=== PATIENT | female | born 1935 | race Caucasian/White ===

== ENCOUNTER 2016-09-28 09:04 | Day surgery (SDC) | payer MEDICARE, BC, OTHER ==
[2016-09-23 14:55] VITALS: BMI 24.3
[~2016-09-28 09:04] MED LIST: LACTATED RINGERS 1,000 ML IV SCH
[2016-09-28 09:19] VITALS: TEMP 98.1
[2016-09-28] MEDS ORDERED: LIDOCAINE 1% 20 ML VIAL (10MG/ML) FOR IV START INTRADERMA ONE (09:27)
[2016-09-28] MEDS ORDERED: LIDOCAINE 1% INJ 10MG/ML (20 ML MDV) ONE (10:02)
[2016-09-28] MEDS ORDERED: PROPOFOL 10 MG/ML 20 ML VIAL IV ONE (10:02)
--- NOTE | 2016-09-28 10:27 | P.PCN ---
Date of Procedure: 09/28/16 Preoperative Diagnosis: Postoperative Diagnosis: Procedure(s) Performed: Procedure: Total colonoscopy. Preoperative diagnosis: History of diverticular disease and nonspecific abdominal symptoms. Postoperative diagnosis: Diverticulosis with no evidence of acute diverticulitis , strictures, polyps or cancer. Preparation: HalfLytely prep. Sedation: Was provided by anesthesia. Brief clinical history: The patient is an 81-year-old female who is referred for this evaluation because of nonspecific abdominal symptoms and history of diverticular disease. Her last examination was 8-10 years ago. The patient was diagnosed with non-small cell CA around 7 years ago which was treated with lobectomy and chemotherapy and has been followed at regular intervals at [facility]. Procedure: With the patient on her left lateral decubitus position and after informed consent and adequate sedation, the perianal area was inspected and it did not show any fissures or fistulas. There were no masses felt on digital rectal examination. The Olympus CFQ 160L video colonoscope was then inserted in the rectum in the usual fashion and advanced to the cecum. There were multiple diverticular orifices seen scattered both on the right and left side with no evidence of acute diverticulitis or strictures. The mucosa appeared healthy. No polyps or tumors were seen. I retroflexed endoscope in the rectum before the endoscope was withdrawn. The patient tolerated the procedure well. Plan: The patient was reassured. Discussed dietary measures. She will follow- up with you as planned. Further plans based on her course. Implants: Indications for Procedure: Operative Findings: Description of Procedure:
[2016-09-28 10:57] VITALS: BP 161/75; PULSE 64; RESP 16
== END 2016-09-28 11:08 | disposition home or self-care (01) ==
LOC: ORWHC2ENDO 09:04
DX: K57.30 Diverticulosis of large intestine without perforation or abscess without bleeding (principal); R19.8 Other specified symptoms and signs involving the digestive system and abdomen; K21.9 Gastro-esophageal reflux disease without esophagitis; I10 Essential (primary) hypertension; E78.5 Hyperlipidemia, unspecified; E07.9 Disorder of thyroid, unspecified; J45.909 Unspecified asthma, uncomplicated; Z85.9 Personal history of malignant neoplasm, unspecified; Z92.21 Personal history of antineoplastic chemotherapy; Z79.51 Long term (current) use of inhaled steroids; Z79.899 Other long term (current) drug therapy; Z88.2 Allergy status to sulfonamides
CPT/HCPCS: 45378; J2001; J2704

== ENCOUNTER → 2016-12-02 | Outpatient (CLI) | payer MEDICARE, BC, OTHER ==
--- NOTE | 2016-12-02 17:53 | BD ---
EXAMINATION TYPE: MG DEXA axial skeleton. DATE OF EXAM: 12/02/2016 COMPARISON: Previous study dated 03/27/2014. CLINICAL HISTORY: Postmenopausal female Height: 5 FT 1/4 IN Weight: 134 FRAX RISK QUESTIONS: Alcohol (3 or more units per day): NO Family History (Parent hip fracture): YES Glucocorticoids (More than 3mos): YES (Ex: prednisone, prednisolone, methylprednisolone, dexamethasone, and hydrocortisone). History of Fracture in Adulthood: NO Secondary Osteoporosis: 1. Type 1 Diabetes: NO 2. Hyperthyroidism: NO 3. Menopause before 45: YES 4. Malnutrition: NO 5. Chronic liver disease: NO Rheumatoid Arthritis: NO Current Tobacco Use: NO RISK FACTORS HISTORY OF: Family History of Osteoporosis: YES Active: YES Postmenopausal woman: TOTAL HYST AGE 39 Lost more than 2 inches in height since high school: YES MEDICATIONS: Prednisone or other steroids: YES How Lon YRS Thyroid Medications: YES Which medication: LEVOTHYROXINE How Long: SINCE AGE 39 Additional Medications: LEVOTHYROXINE,STEROIDS FOR ASTHMA,ATORVA STATIN,ATENLOL, SINGULAIR, ADVAIR HF A, MECLIZINE, FLUTICASONE,NEBULIZER ,VIT D3, OMEPRAZOLE, PROVENTIL Additional History: EXAM MEASUREMENTS: Bone mineral densitometry was performed using the [employer] System. Bone mineral density as measured about the Lumbar spine is: ----- L1-L4(G/cm2): 0.957 T Score Values are as follows: ----- L2: -1.3 ----- L3: -2.8 ----- L4: -2.1 ----- L1-L4: -1.9 Bone mineral density has: Decreased -1.7% since study of: 2013 Bone mineral density about the R hip (g/cm2): 0.612 Bone mineral density about the L hip (g/cm2): 0.626 T Score values are as follows: -----R Neck: -3.1 -----L Neck: -3.0 -----R Total: -2.8 -----L Total: -2.8 Bone mineral density has: Increased 4.5% since study of: 2013 IMPRESSION: Osteoporosis (T Score less than -2.5) as noted by T Score values at the There is increased fracture risk and therapy is usually indicated based on age. Re-Screen 1-2 years. RECOMMENDATION: LATERAL RADIOGRAPHS OF THE THORACIC AND LUMBAR SPINES TO ASSESS FOR FRAGILITY FRACTUR ES THE PATIENT HAS LOST 1 INCH IN HEIGHT SINCE THE PRIOR STUDY. NOTE: T-SCORE=SD OF THE YOUNG ADULT MEAN.
--- NOTE | 2016-12-03 13:09 | MM ---
Reason for exam: screening (asymptomatic). Last mammogram was performed 3 years ago. History: Patient is postmenopausal and has history of other cancer at age 75. Family history of breast cancer in maternal aunt at age 45. Benign excisional biopsy of the left breast, 1992. 8 cyst aspirations of the left breast. 4 cyst aspirations of the right breast. Took estrogen for 2 years beginning at age 68. Taking other hormone for 34 years beginning at age 39. Physical Findings: A clinical breast exam by your physician is recommended on an annual basis and results should be correlated with mammographic findings. MG 3D Screening Mammo W/Cad Bilateral CC and MLO view(s) were taken. Prior study comparison: December 10, 2013, bilateral MG screening mammo w CAD. February 28, 2012, CAD bilateral diagnostic mammogram. February 16, 2011, CAD bilateral diagnostic mammogram. February 05, 2010, bilateral diagnostic digital mammog. There are scattered fibroglandular densities. There is chronic nodularity in the left breast. Stable benign dystrophic calcifications 9 o'clock right breast. Subareolar asymmetric density on the right breast appears more defined but is suspected to be on the basis of cutaneous superimposition on the 3D images. Also, central nodularity left CC view, while not seen on the most recent prior seems to have been present in 2011. A 6 month follow up is recommended. No significant changes when compared with prior studies. ASSESSMENT: Probably benign, BI-RAD 3 RECOMMENDATION: Follow-up diagnostic mammogram of both breasts in 6 months. THU
== END | disposition home or self-care (01) ==
LOC: RADMAMWWP 14:52
PROVIDERS: ATTEND Internal Medicine
DX: Z12.31 Encounter for screening mammogram for malignant neoplasm of breast (principal); M81.0 Age-related osteoporosis without current pathological fracture
CPT/HCPCS: 77080; 77063; G0202

== ENCOUNTER 2017-02-08 08:20 | Day surgery (SDC) | payer MEDICARE, BC, OTHER ==
[2017-02-02 14:27] VITALS: BMI 24.1
[2017-02-08] MEDS: PHENYLEPHRINE 10% OPHTH DROPS 5 ML BTL OP ONE ×2 (09:04→09:17)
[2017-02-08] MEDS ORDERED: LIDOCAINE 1% 20 ML VIAL (10MG/ML) FOR IV START INTRADERMA ONE (09:06)
[2017-02-08] MEDS: CYCLOPENTOLATE 1% OPHTH SOLN 2 ML BTL OP ONE ×3 (09:06→09:20)
[2017-02-08] MEDS: KETOROLAC 0.5% OPHTH DROPS 5 ML BTL OP ONE ×2 (09:08→09:23)
[2017-02-08 09:30] VITALS: RESP 16; TEMP 98
[2017-02-08] MEDS: TIMOLOL 0.5% OPHTH SOLN (PF) 0.2 ML DROPERETTE OP ONE ×2 (10:01→10:13)
[2017-02-08] MEDS: BUPIVACAINE (PF) 0.75% 5 ML, LIDOCAINE 4% (PF) 5 ML, HYALURONIDASE, HUMAN RECOMB 150 UNIT MISCELLANE ONE ×6 (10:01→10:11)
[2017-02-08] MEDS ORDERED: PROPOFOL 10 MG/ML 20 ML VIAL IV ONE (10:02)
[2017-02-08] MEDS ORDERED: LIDOCAINE 1% INJ 10MG/ML (20 ML MDV) ONE (10:02)
[2017-02-08] MEDS: GENTAMICIN/PREDNISOL AC OPHTH OINT 3.5GM OPHTHALMIC ONE ×2 (10:02→10:13)
[2017-02-08] MEDS ORDERED: HYALURONATE SODIUM INTRAOCULAR 1 EACH SYRINGE (10MG/ML) INTRAOCULA ONE (10:15)
[2017-02-08] MEDS ORDERED: BALANCED SALT IRRIG SOLN COMB2 15 ML IRRIG.SOLN IRRIGATION ONE (10:15)
[2017-02-08] MEDS ORDERED: EPINEPHrine (PF) 0.5 ML in BALANCED SALT IRRIG SOLN COMB2 500 ML IRRIGATION ONE (10:17)
--- NOTE | 2017-02-08 10:23 | P.OP ---
Date of Procedure: 02/08/17 Procedure(s) Performed: PREOPERATIVE DIAGNOSIS: Cataract, left eye. POSTOPERATIVE DIAGNOSIS: Cataract, left eye. OPERATION: Phacoemulsification cataract, left eye. DESCRIPTION OF PROCEDURE: The patient was taken to the preoperative holding area. Intravenous Propofol was given so as to bring about adequate sedation. The following mixture was given for local anesthesia: 5 mL of 2% lidocaine, 5 mL of 0.75% Marcaine, and 1 mL of Wydase. Approximately 4 mL was injected in the retrobulbar space of the surgical eye. Additional 1 mL was then directed to the temporal area of the surgical eye. This was performed to allow adequate neurological block of the facial muscles. The patient was revived and then taken into the operative room. The patient was prepped and draped in the usual sterile manner for the operative eye. A lid speculum was put into position. The conjunctiva was resected back from the limbus in the 12 o'clock position. Bleeding was controlled with electrocautery. A #69 blade was then used and a half-thickness scleral incision approximately 1-mm posterior to the limbus was made on bare sclera. This was shelved in the clear cornea using a crescent knife. Next a 15-degree blade was used to make a stab incision at the 3 o' clock position at the corneolimbal interface. Keratome blade was then used and the superior wound was extended into the anterior chamber. Viscoelastic was injected into the anterior chamber and to maintain its form. Next, a cystotome was used and a continuous anterior capsulotomy was made without difficulty. Hydrodissection using a blunt cannula and BSS was performed. Phaco probe was then employed and a groove extending from 12 to 6 o'clock in the lens was created. A Kermit wand was used through the stab incision so as to perform a divide and conquer technique. Next an irrigation aspiration probe was utilized and any residual cortex was removed from the eye. Again, viscoelastic was injected into the anterior chamber. An Candelario posterior chamber lens implant was placed in the cartridge and injected into the anterior chamber without difficulty. The SinResource Capitaley hook was utilized to spin the lens into position and this was again performed without any difficulty. The irrigation and aspiration probe was again employed and any residual viscoelastic was removed from the eye. Then BSS was injected into the limbal stab incision and the anterior chamber re-inflated. The conjunctiva was reapproximated using electrocautery. One drop of 0.25% Timoptic was placed over the corneal along with TobraDex ophthalmic ointment. Two sterile patches and a Ragland eye shield were taped into position. The patient was transported to the recovery room in stable condition. Pathology: none sent Condition: stable Disposition: same day
[2017-02-08 10:43] VITALS: BP 153/88; PULSE 63
== END 2017-02-08 11:09 | disposition home or self-care (01) ==
LOC: OR 08:20
PROVIDERS: ATTEND Ophthalmology
DX: H26.9 Unspecified cataract (principal); I10 Essential (primary) hypertension; E07.9 Disorder of thyroid, unspecified; J45.909 Unspecified asthma, uncomplicated; Z79.51 Long term (current) use of inhaled steroids; Z79.899 Other long term (current) drug therapy; Z88.2 Allergy status to sulfonamides
CPT/HCPCS: 66984; V2632; J2001 ×2; J3470; J0171; J2704

== ENCOUNTER → 2017-12-19 | Outpatient (CLI) | payer MEDICARE, BC, OTHER ==
[2017-12-15 14:25] VITALS: BMI 23.8
[2017-12-19 14:21] VITALS: BP 178/90; PULSE 71; RESP 16; TEMP 98.3
--- NOTE | 2017-12-19 18:35 | P.HPIM ---
History of Present Illness H&P Date: 12/19/17 This is an 82-year-old female who presents to the [facility] pain clinic as a new patient with a chief complaint of neck pain radiating into her bilateral upper extremities. Patient recently had an MRI done after she had worsening neck pain with radicular symptoms. MRI showed that she had a bulging disc at C6-C7 with thecal sac effacement as well as degenerative disc disease as well as facet hypertrophy throughout the cervical spine. Patient states that pain is a 5 out of 10 in severity and describes it as throbbing aching with sharp shooting radicular pain multiple times per day. She reports numbness and tingling all the way down her shoulders to her fingertips, she also admits to slight progressive weakness in her upper extremities as well. Patient states that she's been dropping items however she also has a resting tremor that also affects her upper extremities. Patient is looking for non- opiate-based therapies for her neck pain and radiating pain. I discussed with her cervical epidural steroid injections, risks and benefits of proceeding in such a manner and the patient wishes to proceed with an epidural injection. She frequently takes oral doses of prednisone because of moderate persistent asthma. She notes that when she does take a methylprednisone Dosepak that her painful symptoms subside for weeks. Patient has not had surgery. Patient has not had injections previously. Patient has not had physical therapy recently. In addition to above, 13-point review of systems is also negative for chest pain , shortness of breath, changes in vision, changes in hearing, new onset weakness , abdominal pain, diarrhea, extreme fatigue, malaise, fever, skin changes, homicidal or suicidal ideation, or bowel or bladder incontinence. Vital Signs: Reviewed in EMR Gen: WDWN, AAOx3, NAD HEENT: NCAT, EOMI, hearing grossly normal Pulm: resp unlabored Heart: Regular rate and rhythm, no peripheral edema Neck: supple, trachea midline ROM in flexion cervical spine: Pain with flexion ROM in extension cervical spine: Pain with extension Cervical paravertebral tenderness: + Cervical Facet tenderness: + + Spurling's: Positive bilateral with compression. Upper extremity: +4/5 site planner strength, +4/5 bicep flexion decreased shoulder abduction ROM. Neuro: CN II-XII grossly intact, muscle strength lower extremities PRESERVED Past Medical History Past Medical History: Asthma, Cancer, GERD/Reflux, Hyperlipidemia, Hypertension , Osteoarthritis (OA), Thyroid Disorder Additional Past Medical History / Comment(s): PAIN NECK,SHOULDERS,ARMS, OCC. 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, NO RADIATION, MENIERE'S DISEASE, History of Any Multi-Drug Resistant Organisms: None Reported Past Surgical History: Breast Surgery, Hysterectomy, Orthopedic Surgery Additional Past Surgical History / Comment(s): LT UPPER LOBECTOMY, BENIGN LT BREAST BX, ALIYA Carpal tunnel, BRONCHOSCOPY, COLONOSCOPY, EGD, ALIYA CATARACT REMOVED Past Anesthesia/Blood Transfusion Reactions: No Reported Reaction Additional Past Anesthesia/Blood Transfusion Reaction / Comment(s): HX VERTIGO Smoking Status: Never smoker - Past Family History Father Additional Family Medical History / Comment(s): EMPHYSEMA,STOMACH ULCERS Mother Family Medical History: Pulmonary Embolus Additional Family Medical History / Comment(s): PERNICIOUS ANEMIA,INTESTINAL RUPTURE-COLOSTOMY Son(s) Family Medical History: Cancer Additional Family Medical History / Comment(s): LUNG CA- AGE 50 Medications and Allergies Home Medications Medication Instructions Recorded Confirmed Type Albuterol Nebulized [Ventolin 2.5 mg INHALATION Q6H PRN 12/02/14 12/19/17 History Nebulized] Atenolol 25 mg PO QAM 12/02/14 12/19/17 History Cetirizine HCl [Zyrtec] 10 mg PO DAILY 12/02/14 12/19/17 History Fluticasone Propionate 2 sprays EA NOSTRIL DAILY 12/02/14 12/19/17 History Fluticasone/Salmeterol [Advair Hfa 2 puff INHALATION BID 12/02/14 12/19/17 History 115-21 Mcg Inhaler] Meclizine HCl 25 mg PO QID PRN 12/02/14 12/19/17 History Montelukast [Singulair] 10 mg PO HS 12/02/14 12/19/17 History Atorvastatin [Lipitor] 10 mg PO DAILY 09/23/16 12/19/17 History Jimmy/D3/Mag11/Zinc/Portable Machine Sander/Delon/Bor 1 each PO BID 02/02/17 12/19/17 History [Caltrate 600+D Plus Tablet] Levothyroxine Sodium 100 mcg PO SUMOTUWETHFR 02/02/17 12/19/17 History Omeprazole [PriLOSEC] 20 mg PO QAM 02/02/17 12/19/17 History Acetaminophen [Tylenol Extra 500 mg PO Q4H PRN 12/15/17 12/19/17 History Strength] Albuterol Sulfate [Proventil Hfa] 1 - 2 puff INHALATION Q6HR PRN 12/15/17 History Cholecalciferol (Vitamin D3) 2,000 unit PO DAILY 12/15/17 12/19/17 History [Vitamin D3] methylPREDNISolone Dose Pack 4 mg PO DIRECTED 12/15/17 12/19/17 History [Medrol Dose Pack] Naproxen [Naprosyn] 500 mg PO BID 12/19/17 12/19/17 History Allergies Allergy/AdvReac Type Severity Reaction Status Date / Time Sulfa (Sulfonamide Allergy Rash/Hives Verified 12/19/17 14:08 Antibiotics) Physical Exam Vitals: Vital Signs Temp Pulse Resp BP Pulse Ox 12/19/17 14:10 98.3 F 71 16 178/90 97 Assessment and Plan Plan: Assessment: 1. Cervical radiculopathy 2. Cervical degenerative disc disease 3. Cervical spondylosis without myelopathy Plan: 1. Explanation: Opioid and psychological risk scores were reviewed. Diagnoses , prognoses, and multiple treatment options including but not limited to physical therapy, interventional therapies, adjuvant medical therapies, narcotic medication therapies, and surgery were discussed with the patient and all questions were answered to the patient's satisfaction. 2. Opioid agreement: No opiates being prescribed 3. Counseling: No counseling required. 4. Procedures: Cervical epidural steroid injection 5. Consultations: None 6. Investigations: MRI reviewed with patient, diagnosis reviewed with patient with TREATMENT options also reviewed. 7. Medications: None 8. Disposition: Cervical epidural steroid injection next available date. PQRS measures: 1-Patient's medications are documented in the chart. 2-Tobacco use is negative 3-Patient has not a pneumococcal vaccine. 4-Advanced care planning discussed, patient unable to give. 5-no Opioid contract signed with the patient. 6-Pain positive, follow-up visit or procedure scheduled 7-Patient's blood pressure measured and documented, and patient will follow up with the primary care due to hypertension. 8-Patient's weight was measured, and body mass index within normal limits 9-Patient was not identified as an unhealthy alcohol user.
== END | disposition home or self-care (01) ==
LOC: PNWHC3 13:22
PROVIDERS: ATTEND Anesthesiology
DX: M50.123 Cervical disc disorder at C6-C7 level with radiculopathy (principal); M47.22 Other spondylosis with radiculopathy, cervical region; M46.82 Other specified inflammatory spondylopathies, cervical region; J45.909 Unspecified asthma, uncomplicated; K21.9 Gastro-esophageal reflux disease without esophagitis; E78.5 Hyperlipidemia, unspecified; I10 Essential (primary) hypertension; M19.90 Unspecified osteoarthritis, unspecified site; Z90.710 Acquired absence of both cervix and uterus; Z90.2 Acquired absence of lung [part of]; Z79.51 Long term (current) use of inhaled steroids; Z85.118 Personal history of other malignant neoplasm of bronchus and lung; Z79.52 Long term (current) use of systemic steroids; Z79.899 Other long term (current) drug therapy; Z79.1 Long term (current) use of non-steroidal anti-inflammatories (NSAID); Z88.2 Allergy status to sulfonamides
CPT/HCPCS: 99211

== ENCOUNTER 2018-01-10 09:54 | Day surgery (SDC) | payer MEDICARE, BC, OTHER ==
[2018-01-05 17:12] VITALS: BMI 23.6
[2018-01-10] MEDS ORDERED: LIDOCAINE 1% 20 ML VIAL (10MG/ML) FOR IV START INTRADERMA ONE (10:23)
[2018-01-10 10:28] LABS: Glucose,Whole Blood 91 mg/dL (75-99)
[2018-01-10 10:29] VITALS: TEMP 97.6
--- NOTE | 2018-01-10 11:02 | P.PCN ---
Date of Procedure: 01/10/18 Procedure(s) Performed: . PROCEDURE 1. Cervical epidural steroid injection under fluoroscopic guidance, C7-T1 2. Cervical epidurogram. PREOPERATIVE DIAGNOSIS: 1- Cervical Degenerative Disc Diseases 2- Cervical radiculopathy., 3-cervical spondylosis with cervical Facet arthropathy without myelopathy POSTOPERATIVE DIAGNOSIS: : 1- Cervical Degenerative Disc Diseases , 2- Cervical radiculopathy. 3-,cervical spondylosis with cervical Facet arthropathy without myelopathy ANESTHESIA: Local anesthesia with 1% lidocaine and IV sedation with Versed 1 mg . EBL 0 PROCEDURE INDICATION: The patient with neck pain and radiculitis unresponsive to conservative treatment consents for procedure. PROCEDURE DESCRIPTION / TECHNIQUE: The patient was seen and identified in the preoperative area. Risks, benefits, complications, including but not limited to infections ,bleeding , allergic reactions to the medications ,and not complete pain releife, and alternatives were discussed with the patient, the patient agreed to proceed with the procedure and signed the consent. Patient was taken to the OR and time out was completed. The patient was placed in the prone position on the procedure table. A pillow was placed under the patients chest to increase the cervical interlaminar space. The cervical area was prepped and draped in the usual sterile fashion. Vital signs were closely monitored during the procedure. Conscious sedation was used during the procedure to decrease patients anxiety. Using anterior-posterior fluoroscopy, the C7-T1 interlaminar space was identified and the skin over this site was marked and then infiltrated with 1% lidocaine subcutaneously. Subsequently, a 20-gauge 3-1/2-inch Tuohy epidural needle was inserted and advanced toward the epidural space by means of the `` hanging-drop technique and guided by AP and lateral fluoroscopy. The correct needle position in the epidural space was verified with the injection of 2 mL of the water soluble contrast dye Isovue-200 and observing an excellent epidurogram with the epidural spread of the dye, after negative aspiration for blood and CSF and in the absence of paresthesias. Again after negative aspiration, mixture containing 15 mg Dexamethasone , and 2 ml of preservative- free normal saline injected and a washout of epidurogram was seen. Needle was withdrawn intact, skin was cleansed, and bandages were applied. Complications= none. Disposition= patient was placed in supine position and transferred to the recovery room area in stable condition and there was no evidence of upper or lower extremity motor or sensory deficit after the procedure patient was discharged from recovery room after discharge criteria met and home discharge instructions was given by the staff and patient will follow with the pain clinic in 2-4 weeks
[2018-01-10] MEDS ORDERED: IV FLUID CONTINUATION 600 ML IV ONE (11:09)
[2018-01-10 11:11] VITALS: RESP 16
[2018-01-10 11:25] VITALS: BP 139/80; PULSE 72
--- NOTE | 2018-01-10 14:07 | FL ---
Fluoroscopy HISTORY: Pain 5 seconds fluoroscopy time supplied to the referring clinician. 1 intraoperative C-arm images docume nt the procedure. See dictated report from anesthesia.
== END 2018-01-10 11:42 | disposition home or self-care (01) ==
LOC: ORPAIN 09:54
PROVIDERS: ATTEND Specialist
DX: M50.10 Cervical disc disorder with radiculopathy, unspecified cervical region (principal); M47.22 Other spondylosis with radiculopathy, cervical region; I10 Essential (primary) hypertension; J45.909 Unspecified asthma, uncomplicated; Z88.2 Allergy status to sulfonamides; C34.92 Malignant neoplasm of unspecified part of left bronchus or lung
CPT/HCPCS: 62321; J2250; J1100; Q9966; 62323; 99152

== ENCOUNTER 2018-01-24 09:34 | Day surgery (SDC) | payer MEDICARE, BC, OTHER ==
[2018-01-19 11:36] VITALS: BMI 23.6
[2018-01-24 12:11] VITALS: RESP 16; TEMP 98.5
--- NOTE | 2018-01-24 13:12 | P.PCN ---
Date of Procedure: 01/24/18 Procedure(s) Performed: . PROCEDURE 1. Cervical epidural steroid injection under fluoroscopic guidance, C7-T1 2. Cervical epidurogram. PREOPERATIVE DIAGNOSIS: 1- Cervical Degenerative Disc Diseases 2- Cervical radiculopathy., 3-cervical spondylosis with cervical Facet arthropathy without myelopathy POSTOPERATIVE DIAGNOSIS: : 1- Cervical Degenerative Disc Diseases , 2- Cervical radiculopathy. 3-,cervical spondylosis with cervical Facet arthropathy without myelopathy ANESTHESIA: Local anesthesia with 1% lidocaine and IV sedation with Versed 1 mg EBL 0 PROCEDURE INDICATION: The patient with neck pain and radiculitis unresponsive to conservative treatment consents for procedure. PROCEDURE DESCRIPTION / TECHNIQUE: The patient was seen and identified in the preoperative area. Risks, benefits, complications, including but not limited to infections ,bleeding , allergic reactions to the medications ,and not complete pain releife, and alternatives were discussed with the patient, the patient agreed to proceed with the procedure and signed the consent. Patient was taken to the OR and time out was completed. The patient was placed in the prone position on the procedure table. A pillow was placed under the patients chest to increase the cervical interlaminar space. The cervical area was prepped and draped in the usual sterile fashion. Vital signs were closely monitored during the procedure. Conscious sedation was used during the procedure to decrease patients anxiety. Using anterior-posterior fluoroscopy, the C7-T1 interlaminar space was identified and the skin over this site was marked and then infiltrated with 1% lidocaine subcutaneously. Subsequently, a 20-gauge 3-1/2-inch Tuohy epidural needle was inserted and advanced toward the epidural space by means of the `` hanging-drop technique and guided by AP and lateral fluoroscopy. The correct needle position in the epidural space was verified with the injection of 2 mL of the water soluble contrast dye [id number]-200 and observing an excellent epidurogram with the epidural spread of the dye, after negative aspiration for blood and CSF and in the absence of paresthesias. Again after negative aspiration, mixture containing 15 mg Dexamethasone and 2 ml of preservative- free normal saline injected and a washout of epidurogram was seen. Needle was withdrawn intact, skin was cleansed, and bandages were applied. Complications= none. Disposition= patient was placed in supine position and transferred to the recovery room area in stable condition and there was no evidence of upper or lower extremity motor or sensory deficit after the procedure patient was discharged from recovery room after discharge criteria met and home discharge instructions was given by the staff and patient will follow with the pain clinic in 2-4 weeks
[2018-01-24] MEDS ORDERED: IV FLUID CONTINUATION 1,000 ML IV ONE (13:23)
--- NOTE | 2018-01-24 13:28 | FL ---
EXAMINATION TYPE: FL guided pain mgmt statistic DATE OF EXAM: 01/24/2018 HISTORY: Flouroscopy time 7 seconds of fluoroscopy provided. IMPRESSION: 1. Fluoroscopy time.
[2018-01-24 13:39] VITALS: BP 157/86; PULSE 72
== END 2018-01-24 13:55 | disposition home or self-care (01) ==
LOC: ORPAIN 09:34
PROVIDERS: ATTEND Specialist
DX: M50.10 Cervical disc disorder with radiculopathy, unspecified cervical region (principal); M47.22 Other spondylosis with radiculopathy, cervical region; I10 Essential (primary) hypertension; J45.909 Unspecified asthma, uncomplicated; K21.9 Gastro-esophageal reflux disease without esophagitis; E03.9 Hypothyroidism, unspecified; Z88.2 Allergy status to sulfonamides
CPT/HCPCS: 62321; J2250; J1100; Q9966; 99152

== ENCOUNTER → 2018-02-27 | Outpatient (CLI) | payer MEDICARE, BC, OTHER ==
[2018-02-27 14:15] VITALS: BP 125/81; PULSE 81; RESP 16
--- NOTE | 2018-02-28 10:15 | P.PAINPG ---
Subjective Progress Note Date: 02/27/18 This is a follow-up visit for this 83 years old female with chronic history of severe neck pain, she is diagnosed with cervical radiculopathy, cervical degenerative disc disease and cervical spondylosis with facet arthropathy, with done cervical epidural steroid injections 2, she got only short-term benefit, she continued to have severe neck pain, the intensity of pain increased with any activity, she continues to use naproxen 500 mg once a day and Tylenol 500 mg every 6 hours., She denies any side effects of the medication she denies any motor or sensory deficits she denies any fever or night sweats, she denies any changes in her bowel movements or urination Objective - Vital Signs Vital signs: Vital Signs Temp Pulse 81 02/27/18 14:07 Resp 16 02/27/18 14:07 BP 125/81 02/27/18 14:07 Pulse Ox 97 02/27/18 14:07 Intake & Output 02/27/18 02/28/18 02/28/18 18:59 06:59 18:59 Weight 56.699 kg - Exam Physical Examinations : 1-Constitutiona : Cooperative , not in acute distress . 2-HEENT : nech ; supple , no Lymphadenopathy , normal thyroid size . eyes : no ptosis , no icterus, no photophobia . ENT : normal of hearing , normal oropharynx , no Thrush . 3- Respiratory : Chest clear to auscultations Bilaterally , no wheezing , no Rhonchi . 4- Cardiovascular : regular rate and rhythem , S1 , S2 , no S3 , no S4. 5- Gastrointestinal : abdomen soft no tenderness , bowel sounds , no organomegally . 6- Genitourinary : Defferred . 7- neurologic : Cranial nerve II to XII intact , no focal neurological deffecit . 8-psychatric : alert , oriented X 3 , appropriate affect , intact judgment and insight . 9-Lymphatic : no Lymphadenopathy . 10- musculoskeltal : Cervical Spine motor stregnth in the deltoid and biceps, normal right side , normal Left side motor stregnth biceps and the wrist extensors normal right side ,normal left side . motor stregnth in the triceps muscle . normal Right side , normal Left side deep tendon reflexes normal at the biceps , normal at Brachioradialis , normal at triceps. positive cervical facet loading test . Lumber spine moter stegnth lower extremities , thigh and legs 5/5 Right side , 5/5 Left side MRI of the cervical spine showed C5-C6 cervical facet and cervical degenerative disc disease and right-sided foraminal stenosis, C6 7 disc bulging disc and cervical facet arthropathy and right-sided foraminal stenosis C7-T1 cervical facet Assessment and Plan Plan: Assessment and plan= cervical radiculopathy, cervical degenerative disc disease , cervical spondylosis with cervical facet arthropathy Patient had short-term benefit from cervical epidural steroid injection done twice Patient will be good candidate to have diagnostic medial branch block cervical area C4/C5/C6 Patient preferre, to wait before she can proceed with any further interventional pain management, and I offered the patient the option of doing physical therapy verses referring her to see a surgeon, patient preferred to do physical therapy, and patient will be seen in the pain clinic in 2 months after she finished her physical therapy, we'll discuss with her again the option of scheduling her to have diagnostic medial branch block cervical Time with Patient: Less than 30 PQRS Measure Charge Sheet Measure #130: Documentation of Current Meds in Medical Chart: Patient's medications documented in chart Measure #226: Tobacco Use: Screen & Cessation Intervention: Pt not a tobacco user Measure #111: Pneumonia Vaccination: Pneumococcal vaccine administered or previously received Measure #47: Advance Care Plan: Advance care planning discussed & documented, pt chose/unable to give Measure #412: Opioid Treatment Agreement: No documentation of signed opioid treatment agreement Measure #408: Opioid Therapy Follow-up Evaluation: Patient had NO f/u eval minimum every 3 months during opioid therapy Measure #317: Preventitive Care & Scrn High Bld Press & F/U: Normal blood pressure, f/u not required Measure #128: Body Mass Index (BMI) Screening & Follow-up: BMI documented within normal parameters Measure #131: Pain Assessment & Follow-up: Pain positive & plan documented, Follow-up scheduled Measure #431: Unhealthy Alcohol Use Preventative Care & Scrn: Patient not identified as an unhealthy alcohol user PQRS Narrative: Smoking Status Never smoker Do You Want the Pneumonia Vaccine Up to Date Vaccine AT THIS TIME? Blood Pressure 125/81 Pain Intensity [Posterior Neck 6 ] Scale Used Numeric (1 - 10) Hx Alcohol Use (MH) No Home Medications: Ambulatory Orders Albuterol Nebulized [Ventolin Nebulized] 2.5 mg INHALATION Q6H PRN 12/02/14 Atenolol 25 mg PO QAM 12/02/14 Cetirizine HCl [Zyrtec] 10 mg PO DAILY 12/02/14 Fluticasone Propionate 2 sprays EA NOSTRIL DAILY 12/02/14 Fluticasone/Salmeterol [Advair Hfa 115-21 Mcg Inhaler] 2 puff INHALATION BID Meclizine HCl 25 mg PO QID PRN 12/02/14 Montelukast [Singulair] 10 mg PO HS 12/02/14 Atorvastatin [Lipitor] 10 mg PO DAILY 09/23/16 Jimmy/D3/Mag11/Zinc/Sed Special Education Teacher/Delon/Bor [Caltrate 600+D Plus Tablet] 1 each PO BID Levothyroxine Sodium 100 mcg PO SUMOTUWETHFR 02/02/17 Omeprazole [PriLOSEC] 20 mg PO QAM 02/02/17 Acetaminophen [Tylenol Extra Strength] 500 mg PO Q4H PRN 12/15/17 Albuterol Sulfate [Proventil Hfa] 1 - 2 puff INHALATION Q6HR PRN 12/15/17 Cholecalciferol (Vitamin D3) [Vitamin D3] 2,000 unit PO DAILY 12/15/17 Naproxen [Naprosyn] 500 mg PO BID 12/19/17 Controlled Substance Measures - Controlled Substance Measures Is patient prescribed a controlled substance at discharge?: No When asked, does pt state using other controlled substances?: No If prescribed controlled substance>3 days was MAPS reviewed?: No If Rx opioid, was Start Talking consent form obtained?: No If opioid is for acute pain is fill amount 7 days or less?: No Was information provided regarding opioid addiction?: No
== END | disposition home or self-care (01) ==
LOC: PNWHC3 13:26
PROVIDERS: ATTEND Specialist
DX: G89.29 Other chronic pain (principal); M99.71 Connective tissue and disc stenosis of intervertebral foramina of cervical region; M50.122 Cervical disc disorder at C5-C6 level with radiculopathy; M47.22 Other spondylosis with radiculopathy, cervical region; M46.92 Unspecified inflammatory spondylopathy, cervical region; Z79.51 Long term (current) use of inhaled steroids; Z79.899 Other long term (current) drug therapy
CPT/HCPCS: 99211

== ENCOUNTER → 2018-04-25 | Outpatient (CLI) | payer MEDICARE, BC, OTHER ==
[2018-04-25 12:39] VITALS: BP 154/85; PULSE 77; RESP 18
--- NOTE | 2018-04-25 13:31 | P.PN ---
Subjective Progress Note Date: 04/25/18 This is a follow-up visit for this 83 years old female with chronic history of severe neck pain, she is diagnosed with cervical radiculopathy, cervical degenerative disc disease and cervical spondylosis with facet arthropathy, with done cervical epidural steroid injections 2, she got only short-term benefit, she continued to have severe neck pain, the intensity of pain increased with any activity, she continues to use naproxen 500 mg once a day and Tylenol 500 mg every 6 hours., She denies any side effects of the medication she denies any motor or sensory deficits she denies any fever or night sweats, she denies any changes in her bowel movements or urination, she was referred to have physical therapy, and she has done 2 months of physical therapy without any significant benefit, she continued to have severe neck pain with radiation to the right upper extremity Physical Examinations : 1-Constitutiona : Cooperative , not in acute distress . 2-HEENT : nech ; supple , no Lymphadenopathy , normal thyroid size . eyes : no ptosis , no icterus, no photophobia . ENT : normal of hearing , normal oropharynx , no Thrush . 3- Respiratory : Chest clear to auscultations Bilaterally , no wheezing , no Rhonchi . 4- Cardiovascular : regular rate and rhythem , S1 , S2 , no S3 , no S4. 5- Gastrointestinal : abdomen soft no tenderness , bowel sounds , no organomegally . 6- Genitourinary : Defferred . 7- neurologic : Cranial nerve II to XII intact , no focal neurological deffecit . 8-psychatric : alert , oriented X 3 , appropriate affect , intact judgment and insight . 9-Lymphatic : no Lymphadenopathy . 10- musculoskeltal : Cervical Spine motor stregnth in the deltoid and biceps, normal right side , normal Left side motor stregnth biceps and the wrist extensors normal right side ,normal left side . motor stregnth in the triceps muscle . normal Right side , normal Left side deep tendon reflexes normal at the biceps , normal at Brachioradialis , normal at triceps. positive cervical facet loading test . Lumber spine moter stegnth lower extremities , thigh and legs 5/5 Right side , 5/5 Left side MRI of the cervical spine showed C5-C6 cervical facet and cervical degenerative disc disease and right-sided foraminal stenosis, C6 7 disc bulging disc and cervical facet arthropathy and right-sided foraminal stenosis C7-T1 cervical facet Assessment and plan= cervical radiculopathy, cervical degenerative disc disease , cervical spondylosis with cervical facet arthropathy Patient had short-term benefit from cervical epidural steroid injection done twice Patient will be good candidate to have diagnostic medial branch block cervical area C4/C5/C6 Patient had no benefit from physical therapy, I discussed with the patient the option of doing the diagnostic medial branch block , and they explained to the patient that this could help her neck pain and that it will not help the pain doesn't radiate to the right upper extremity , patient reported that she preferred not to do any interventional pain management at this point, and because patient had foraminal stenosis, maybe she will be good candidate to have surgical intervention but patient is very hesitant to have any surgery, and she preferred to try medication management, I gave the patient prescription for Neurontin 100 mg twice a day dispense 60 with 1 refill and she will be coming back for follow-up visit in 2 months PQRS Measure Charge Sheet Measure #130: Documentation of Current Meds in Medical Chart: Patient's medications documented in chart Measure #226: Tobacco Use: Screen & Cessation Intervention: Pt not a tobacco user Measure #111: Pneumonia Vaccination: Pneumococcal vaccine administered or previously received Measure #47: Advance Care Plan: Advance care planning discussed & documented, pt chose/unable to give Measure #412: Opioid Treatment Agreement: No documentation of signed opioid treatment agreement Measure #408: Opioid Therapy Follow-up Evaluation: Patient had NO f/u eval minimum every 3 months during opioid therapy Measure #317: Preventitive Care & Scrn High Bld Press & F/U: Blood pressure 159/ 88 patient is hypertensive and she will follow up with her primary care Measure #128: Body Mass Index (BMI) Screening & Follow-up: BMI documented within normal parameters Measure #131: Pain Assessment & Follow-up: Pain positive & plan documented, Follow-up scheduled Measure #431: Unhealthy Alcohol Use Preventative Care & Scrn: Patient not identified as an unhealthy alcohol user PQRS Narrative: - Controlled Substance Measures Is patient prescribed a controlled substance at discharge?: No When asked, does pt state using other controlled substances?: No If prescribed controlled substance>3 days was MAPS reviewed?: No If Rx opioid, was Start Talking consent form obtained?: No If opioid is for acute pain is fill amount 7 days or less?: No Was information provided regarding opioid addiction?: No Objective - Vital Signs Vital signs: Vital Signs Temp Pulse 77 04/25/18 12:30 Resp 18 04/25/18 12:30 BP 154/85 04/25/18 12:30 Pulse Ox 97 04/25/18 12:30 Intake & Output 04/24/18 04/25/18 04/25/18 18:59 06:59 18:59 Weight 57.606 kg
== END | disposition home or self-care (01) ==
LOC: PNWHC3 12:09
PROVIDERS: ATTEND Specialist
DX: M50.10 Cervical disc disorder with radiculopathy, unspecified cervical region (principal); M47.22 Other spondylosis with radiculopathy, cervical region; M46.92 Unspecified inflammatory spondylopathy, cervical region; Z79.1 Long term (current) use of non-steroidal anti-inflammatories (NSAID); Z79.899 Other long term (current) drug therapy
CPT/HCPCS: 99211

== ENCOUNTER → 2018-06-29 | Outpatient (CLI) | payer MEDICARE, BC, OTHER ==
[2018-06-29 13:22] VITALS: BP 145/72; PULSE 78; RESP 16
--- NOTE | 2018-06-29 13:43 | P.PN ---
Subjective Progress Note Date: 06/29/18 Rebeca is a very pleasant 83-year-old female presents today with continued right arm pain. She reports that she has pain in her right arm and right shoulder sometimes going down into her arm. She feels that she has pain with lifting any heavy objects and sometimes pain with raising her arm above her head including doing her hair. She's had 2 cervical epidural steroid injections with no relief. She feels that the pain is bothering her significantly and she is taking [id number] Tylenol as well as naproxen as needed for the pain. She did trialed Neurontin for 1 month but it made her quite drowsy. She is here today with her and they're both concerned about the right arm pain that she is having in her inquiring about other options. Objective - Vital Signs Vital signs: Vital Signs Temp Pulse 78 06/29/18 13:11 Resp 16 06/29/18 13:11 BP 145/72 06/29/18 13:11 Pulse Ox 96 06/29/18 13:11 Intake & Output 06/28/18 06/29/18 06/29/18 18:59 06:59 18:59 Weight 56.699 kg - Exam PHYSICAL EXAM: Constitutional: Awake and alert no distress Cardiovascular exam: Regular rate, no lower extremity edema, palpable pulses bilaterally Respiratory exam: No audible wheezing, no accessory muscle usage Abdominal exam: Soft nontender Muscular skeletal exam: - Cervical spine: Nontender to palpation bilaterally. Range of motion is not limited. Spurling is negative bilateral. Facet loading is negative bilaterally - Lumbar spine: Preserved lumbar lordosis. No changes in skin. Nontender palpation bilateral. Patient has full range of motion in flexion and extension as well as lateral sidebending. - Right shoulder empty can test is positive, there is pain with overhead abduction of her right arm. There is pain with internal rotation of the arm. can only raise arm to L1 on the right. Neuro exam: Normal sensation bilateral upper and lower extremities. Deep tendon reflexes are 2+ bilaterally. Devi's is negative Psychiatric exam: Cooperative, good insight Assessment and Plan Assessment: Cervical radiculopathy Rotator cuff tendinopathy Plan: After examination of the patient discussion with the patient has been I feel that some her pain might be coming from her right shoulder. At this time I feel the best course of action is to order an ultrasound of the right shoulder to evaluate the rotator cuff tendons. We will schedule her for follow-up in 2- 4 weeks after she has the ultrasound to evaluate and potentially treat the right shoulder if there is any pathology. I advised to continue taking over-the -counter medications only as tolerated and an as prescribed.
== END | disposition home or self-care (01) ==
LOC: PNWHC3 12:55
PROVIDERS: ATTEND Hospitalist
DX: M54.12 Radiculopathy, cervical region (principal); M75.81 Other shoulder lesions, right shoulder; Z79.891 Long term (current) use of opiate analgesic; Z79.899 Other long term (current) drug therapy; Z79.1 Long term (current) use of non-steroidal anti-inflammatories (NSAID)
CPT/HCPCS: 99211

== ENCOUNTER → 2018-08-16 | Outpatient (CLI) | payer MEDICARE, BC, OTHER ==
[2018-08-16 14:08] VITALS: BP 163/80; PULSE 66; RESP 18
--- NOTE | 2018-08-16 14:57 | P.PN ---
Subjective Progress Note Date: 08/16/18 This is an 85-year-old pleasant lady with history of neck and right shoulder pain. The patient has a diagnosis of cervical radiculopathy and recently she had an ultrasound on the right shoulder which showed complete tear of the supraspinatus tendon with small mass in the right trapezius muscle with recom mendation for an MRI on the right shoulder. Her pain however is much better than before as she states. By physical exam she still has decreased range of motion of the right shoulder. She has mild tenderness in the shoulder joint anteriorly and posteriorly. The patient will be referred to see an orthopedic surgeon for further evaluation and then he or she would decide on getting an MRI on the right shoulder joint. The patient will be seen as needed. Objective - Vital Signs Vital signs: Vital Signs Temp Pulse 66 08/16/18 14:02 Resp 18 08/16/18 14:02 BP 163/80 08/16/18 14:02 Pulse Ox 98 08/16/18 14:02 Intake & Output 08/15/18 08/16/18 08/16/18 18:59 06:59 18:59 Weight 57.606 kg
== END | disposition home or self-care (01) ==
LOC: PNWHC3 08-07 13:05
PROVIDERS: ATTEND Anesthesiology
DX: M54.12 Radiculopathy, cervical region (principal); M25.511 Pain in right shoulder
CPT/HCPCS: 99211

== ENCOUNTER → 2018-11-21 | Outpatient (CLI) | payer MEDICARE, BC, OTHER ==
--- NOTE | 2018-11-21 16:52 | US ---
EXAMINATION TYPE: US carotid duplex BILAT DATE OF EXAM: 11/21/2018 COMPARISON: NONE CLINICAL HISTORY: I65.23 Stenosis of carotid arteries. EXAM MEASUREMENTS: RIGHT: Peak Systolic Velocity (PSV) cm/sec ----- Right CCA: 53.1 ----- Right ICA: 60.9 ----- Right ECA: 65.9 ICA/CCA ratio: 1.1 RIGHT: End Diastole cm/sec ----- Right CCA: 17.5 ----- Right ICA: 20.4 ----- Right ECA: 12.5 LEFT: Peak Systolic Velocity (PSV) cm/sec ----- Left CCA: 49.5 ----- Left ICA: 58.6 ----- Left ECA: 67.6 ICA/CCA ratio: 1.2 LEFT: End Diastole cm/sec ----- Left CCA: 14.7 ----- Left ICA: 21.9 ----- Left ECA: 15.0 VERTEBRALS (direction of flow): Right Vertebral: Antegrade Left Vertebral: Antegrade Rhythm: Normal No elevated velocities, no significant stenosis. Grayscale, color Doppler, spectral Doppler imaging performed of the carotid arteries. Waveform analys is does not show significant stenosis of the proximal internal carotid arteries. IMPRESSION: No hemodynamic significant stenosis of the proximal internal carotid arteries by Doppler criteria, an indirect measurement of carotid stenosis
== END | disposition home or self-care (01) ==
LOC: RADUSWWP 14:59
PROVIDERS: ATTEND Internal Medicine
DX: I65.23 Occlusion and stenosis of bilateral carotid arteries (principal)
CPT/HCPCS: 93880

== ENCOUNTER → 2018-11-22 | Outpatient (CLI) | payer MEDICARE, BC, OTHER ==
--- NOTE | 2018-11-23 07:59 | BD ---
EXAMINATION TYPE: Axial Bone Density DATE OF EXAM: 11/22/2018 COMPARISON: DEXA 2016. CLINICAL HISTORY: Postmenopausal femalescreening Height: 5' Weight: 132 FRAX RISK QUESTIONS: Secondary Osteoporosis: RISK FACTORS HISTORY OF: Postmenopausal woman: y MEDICATIONS: Thyroid Medications: Which medication: Levothyroxine How Lon years Additional Medications: arthritis, nigh blood pressure, cholesterol , asthma Additional History: lung cancer 2008 EXAM MEASUREMENTS: Bone mineral densitometry was performed using the [employer] System. Bone mineral density as measured about the Lumbar spine is: ----- L1-L4(G/cm2): 0.926 T Score Values are as follows: ----- L2: -2.1 ----- L3: -1.1 ----- L4: -2.6 ----- L1-L4: -2.1 Bone mineral density has: Decreased -0.2% since study of: 12/02/2016 Bone mineral density about the R hip (g/cm2): 0.617 Bone mineral density about the L hip (g/cm2): 0.597 T Score values are as follows: -----R Neck: -3.0 -----L Neck: -3.2 -----R Total: -2.8 -----L Total: -2.7 Bone mineral density has: Increased 1.4% since study of: 12/02/2016 IMPRESSION: Osteoporosis (T Score less than -2.5) remains present. There remains increased fracture risk and therapy is usually indicated based on age. Re-Screen 1-2 years. NOTE: T-SCORE=SD OF THE YOUNG ADULT MEAN.
--- NOTE | 2018-11-23 14:53 | MM ---
Reason for exam: screening (asymptomatic). Last mammogram was performed 1 year and 5 months ago. History: Patient is postmenopausal and has history of other cancer at age 75. Family history of breast cancer in maternal aunt at age 45. Benign excisional biopsy of the left breast, 1992. 8 cyst aspirations of the left breast. 4 cyst aspirations of the right breast. Took estrogen for 2 years beginning at age 68. Taking other hormone for 34 years beginning at age 39. Physical Findings: A clinical breast exam by your physician is recommended on an annual basis and results should be correlated with mammographic findings. MG 3D Screening Mammo W/Cad Bilateral CC and MLO view(s) were taken. Prior study comparison: June 13, 2017, bilateral MG 3d diag mammo w/cad ALIYA. December 02, 2016, bilateral MG 3d screening mammo w/cad. The breast tissue is heterogeneously dense. This may lower the sensitivity of mammography. Finding: There are typically benign coarse calcifications in the outer quadrant, middle position of the right breast. Focal asymmetry in the left breast. ASSESSMENT: Benign, BI-RAD 2 RECOMMENDATION: Routine screening mammogram of both breasts in 1 year.
== END | disposition home or self-care (01) ==
LOC: RADMAMWWP 15:32
PROVIDERS: ATTEND Internal Medicine
DX: Z12.31 Encounter for screening mammogram for malignant neoplasm of breast (principal); M81.0 Age-related osteoporosis without current pathological fracture
CPT/HCPCS: 77063; 77067; 77080

== ENCOUNTER → 2018-12-20 | Outpatient (CLI) | payer MEDICARE, BC, OTHER ==
--- NOTE | 2018-12-21 11:25 | ECHOF ---
Referral Reason:I34.0 mitral regurgitation MEASUREMENTS -------- HEIGHT: 154.9 cm WEIGHT: 63.5 kg BP: 175/74 IVSd: 1.1 cm (0.6 - 1.1) LVIDd: 4.3 cm (3.9 - 5.3) LVPWd: 1.1 cm (0.6 - 1.1) IVSs: 1.4 cm LVIDs: 3.0 cm LVPWs: 1.5 cm LA Diam: 2.9 cm (2.7 - 3.8) RVIDd: 3.0 cm (< 3.3) LAESV Index (A-L): 27.62 ml/m Ao Diam: 3.3 cm (2.0 - 3.7) AV Cusp: 2.0 cm (1.5 - 2.6) EPSS: 0.9 cm MV E Jair: 0.48 m/s MV DecT: 389 ms MV A Jair: 0.84 m/s MV E/A Ratio: 0.57 RAP: 5.00 mmHg RVSP: 27.32 mmHg MV EF SLOPE: 44.28 mm/s (70 - 150) MV EXCURSION: 8.50 mm (> 18.000) FINDINGS -------- Sinus rhythm. This was a technically good study. The left ventricular size is normal. There is borderline concentric left ventricular hypertrophy. Overall left ventricular systolic function is normal with, an EF between 60 - 65 %. The right ventricle is normal in size. Normal LA size by volume 22+/-6 ml/m2. The right atrium is normal in size. Interatrial and interventricular septum intact. Aneurysmal Interatrial septum. The aortic valve is trileaflet and appears structurally normal. Mild mitral regurgitation is present. Mild tricuspid regurgitation present. Right ventricular systolic pressure is normal at < 35 mmHg. Trace/mild (physiologic) pulmonic regurgitation. The aortic root size is normal. Normal inferior vena cava with normal inspiratory collapse consistent with estimated right atrial pre ssure of 5 mmHg. There is no pericardial effusion. CONCLUSIONS -------- 1. Sinus rhythm. 2. This was a technically good study. 3. The left ventricular size is normal. 4. There is borderline concentric left ventricular hypertrophy. 5. Overall left ventricular systolic function is normal with, an EF between 60 - 65 %. 6. The right ventricle is normal in size. 7. Normal LA size by volume 22+/-6 ml/m2. 8. The right atrium is normal in size. 9. Interatrial and interventricular septum intact. 10. Aneurysmal Interatrial septum. 11. The aortic valve is trileaflet and appears structurally normal. 12. Mild mitral regurgitation is present. 13. Mild tricuspid regurgitation present. 14. Right ventricular systolic pressure is normal at < 35 mmHg. 15. Trace/mild (physiologic) pulmonic regurgitation. 16. The aortic root size is normal. 17. Normal inferior vena cava with normal inspiratory collapse consistent with estimated right atrial pressure of 5 mmHg. 18. There is no pericardial effusion. END POLISHER: Sofya Garcia RDCS
== END | disposition home or self-care (01) ==
LOC: RADECHMAIN 12:53
PROVIDERS: ATTEND Internal Medicine
DX: I08.1 Rheumatic disorders of both mitral and tricuspid valves (principal); I25.3 Aneurysm of heart
CPT/HCPCS: 93306

== ENCOUNTER → 2020-10-15 | Outpatient (CLI) | payer MEDICARE, OTHER ==
[2020-10-15 12:51] LABS: African American GFR (CKD) >90 (>60 ml/min/1.73 sqM); Blood Urea Nitrogen 7 mg/dL (7-17); Non-African American GFR(CKD) 81 (>60 ml/min/1.73 sqM)
--- NOTE | 2020-10-16 21:55 | CT ---
EXAMINATION TYPE: CT abdomen pelvis w con DATE OF EXAM: 10/15/2020 COMPARISON: None INDICATION: Diverticulitis DLP: 375.60 mGycm, Automated exposure control for dose reduction was used. CONTRAST: 100 ml mL of Isovue 300. Study performed with Oral Contrast TECHNIQUE: Axial images were obtained from above the diaphragm to the pubic rami in the axial plane a t 5 mm thick sections. Reconstructed images are reviewed on the computer in the coronal plane. FINDINGS: Limited CT sections are obtained the lung bases. The lung bases are clear. Small hiatal hernia is p resent. CT ABDOMEN: Liver: Normal Spleen: Normal Pancreas: Normal Adrenal glands: The adrenal glands are normal. Gallbladder: Normal Kidneys: No masses are evident. No hydronephrosis is present. No cysts are present. Delayed images were obtained through the kidneys, which remain unremarkable. Bilateral extrarenal pelves are presen t Aorta: Normal Inferior vena cava: Normal. CT PELVIS: Loops of bowel within the abdomen and pelvis are normal. Scattered diverticuli within the sigmoid col on. No suspicious adjacent inflammatory changes are evident. There are loops of bowel which are in completely distended or lack oral contrast limiting their evaluation. Appendix: Not identified. No suspicious dilated tubular structure or inflammatory changes are evident . Urinary bladder: Cystocele is likely present. distended Genitourinary structures: Osseous structures: No suspicious lytic or sclerotic lesions. There is a small sclerotic area in the anterior left pubic symphysis could be a bone island. Scoliosis within the lumbar spine. IMPRESSIONS: 1. Diverticulosis without acute diverticulitis. 2. Degenerative scoliosis to the lumbar spine. 3. Small hiatal hernia
== END | disposition home or self-care (01) ==
LOC: RADCTMAIN 11:58
PROVIDERS: ATTEND Internal Medicine
DX: K57.30 Diverticulosis of large intestine without perforation or abscess without bleeding (principal); K44.9 Diaphragmatic hernia without obstruction or gangrene
CPT/HCPCS: 82565; 84520; 74177; 36415; Q9967

== ENCOUNTER → 2020-10-18 | Outpatient (CLI) | payer MEDICARE, OTHER ==
--- NOTE | 2020-10-19 14:45 | MR ---
EXAMINATION TYPE: MR neck wo/w con DATE OF EXAM: 10/18/2020 COMPARISON: None HISTORY: Large lymph node right side of neck for 5 years. CONTRAST: Standard multiplanar, multisequence MRI departmental protocol utilizing 5.5 mL intravenous Gadavist g adolinium contrast. There is mucosal thickening in the maxillary sinuses and more on the left side. Maxilla is intact. Th ere is some mucosal thickening in the sphenoid ethmoid sinuses. The visualized brain appears intact. There is cerebral atrophy. Mandible appears intact. Submandibular salivary glands appear intact. The parotid glands are fairly s ymmetric. There is an enlarged right side submandibular lymph node. This is anterior to the sternocleidomastoid mastoid muscle and measures 10 mm. I see no pathologic enhancement. The mandible appears intact. Epiglottis is normal. There is no evidence of a pharyngeal mass. Upper t rachea appears intact. On the axial images there is some asymmetry of the glottis with left side increased tissue thickness. This however is not seen on the coronal images. IMPRESSION: Enlarged right anterior triangle cervical lymph node which is not significantly changed in size queenie red to old CT scan of 09/07/2012. Asymmetric tissue thickness at the glottis on the left side seen on axial but not the coronal images and of doubtful significance.
== END | disposition home or self-care (01) ==
LOC: RADMRIMAIN 13:38
PROVIDERS: ATTEND Otolaryngology
DX: R59.0 Localized enlarged lymph nodes (principal)
CPT/HCPCS: 70543; A9585

== ENCOUNTER → 2020-12-17 | Outpatient (CLI) | payer MEDICARE, OTHER ==
[2020-12-17 12:21] VITALS: BP 132/83; PULSE 64; RESP 16; TEMP 97.9
--- NOTE | 2020-12-17 12:23 | P.PAINCN ---
History of Present Illness - Reason for Consult Consult date: 12/17/20 - History of Present Illness This is 85 years old female, with a history of severe neck pain with radiation to the right upper extremity associated with numbness and tingling sensation, patient had the episode started recently a few weeks ago, but patient had similar episode started 3 years ago and was treated with cervical epidural steroid injection and physical therapy, she had good pain relief until recently when she started the same pain, patient was treated with naproxen and Tylenol and she continued to have pain Past Medical History Past Medical History: Asthma, Cancer, GERD/Reflux, Hearing Disorder / Deafness, Hyperlipidemia, Hypertension, Osteoarthritis (OA), Thyroid Disorder Additional Past Medical History / Comment(s): PAIN NECK,SHOULDERS,ARMS, OCC. 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 History of Any Multi-Drug Resistant Organisms: None Reported Past Surgical History: Breast Surgery, Hysterectomy, Orthopedic Surgery Additional Past Surgical History / Comment(s): LT UPPER LOBECTOMY, BENIGN LT BREAST BX, ALIYA Carpal tunnel, BRONCHOSCOPY, COLONOSCOPY, EGD, ALIYA CATARACT REMOVED, PAIN CLINIC PROCEDURES. Past Anesthesia/Blood Transfusion Reactions: No Reported Reaction Additional Past Anesthesia/Blood Transfusion Reaction / Comm: HX VERTIGO Past Psychological History: No Psychological Hx Reported Past Alcohol Use History: None Reported Past Drug Use History: None Reported - Past Family History Father Additional Family Medical History / Comment(s): EMPHYSEMA,STOMACH ULCERS Mother Family Medical History: Pulmonary Embolus Additional Family Medical History / Comment(s): PERNICIOUS ANEMIA,INTESTINAL RUPTURE-COLOSTOMY Son(s) Family Medical History: Cancer Additional Family Medical History / Comment(s): LUNG CA- AGE 50 Medications and Allergies Home Medications Medication Instructions Recorded Confirmed Type Albuterol Nebulized [Ventolin 2.5 mg INHALATION Q6H PRN 12/02/14 08/16/18 History Nebulized] Cetirizine HCl [Zyrtec] 10 mg PO DAILY 12/02/14 08/16/18 History Fluticasone Propionate 2 sprays EA NOSTRIL DAILY 12/02/14 08/16/18 History Meclizine HCl 25 mg PO QID PRN 12/02/14 08/16/18 History Montelukast [Singulair] 10 mg PO HS 12/02/14 08/16/18 History atenoloL [Atenolol] 25 mg PO QAM 12/02/14 08/16/18 History Atorvastatin [Lipitor] 10 mg PO DAILY 09/23/16 08/16/18 History Jimmy/D3/Mag11/Zinc/Chemistry Quality Control Analyst/Delon/Bor 1 each PO BID 02/02/17 08/16/18 History [Caltrate 600+D Plus Tablet] Levothyroxine Sodium 100 mcg PO SUMOTUWETHFR 02/02/17 08/16/18 History Omeprazole [PriLOSEC] 20 mg PO QAM 02/02/17 08/16/18 History Albuterol Sulfate [Proventil Hfa] 1 - 2 puff INHALATION Q6HR PRN 12/15/17 08/16/18 History Cetirizine HCl [Zyrtec] 5 mg PO DAILY 12/17/20 12/17/20 History Fluticasone/Salmeterol [Advair Hfa 2 puff INHALATION BID 12/17/20 12/17/20 History 115-21 Mcg Inhaler] Losartan Potassium [Cozaar] 50 mg PO HS 12/17/20 12/17/20 History Allergies Allergy/AdvReac Type Severity Reaction Status Date / Time Sulfa (Sulfonamide Allergy Rash/Hives Verified 08/16/18 14:02 Antibiotics) Physical Exam Vitals: Intake and Output 12/16/20 12/17/20 12/17/20 22:59 06:59 14:59 Other: Weight 55.792 kg Physical Examinations : -Constitutiona : Cooperative , not in acute distress . -HEENT : nech : supple , no Lymphadenopathy , normal thyroid size . : eyes : no ptosis , no icterus, no photophobia . - neurologic : Cranial nerve II to XII intact , no focal neurological deffecit . -psychatric : alert , oriented X 3 , appropriate affect , intact judgment and insight . -Lymphatic : no Lymphadenopathy . - musculoskeltal : Cervical Spine motor stregnth in the deltoid and biceps, normal right side , normal Left side motor stregnth biceps and the wrist extensors normal right side ,normal left side . motor stregnth in the triceps muscle . normal Right side , normal Left side deep tendon reflexes normal at the biceps , normal at Brachioradialis , normal at triceps. cervical facet loading test: Positive Bilaterally Spurling test= positive Right , positive left. Neck distraction test= positive Right , positive left. Drake sign= positive right, positive left . Multiple trigger point identified in the cervical paraspinal muscles on the right side Total trigger point identified in the right shoulder blade area Lumber spine moter stegnth lower extremities ,thigh and legs 5/5 Right side , 5/5 Left side Results Comments: MRI of the cervical spine multilevel cervical degenerative disc disease at C4 5 and C5 6 C6 7, level cervical facet arthropathy and right foraminal stenosis Assessment and Plan Plan: Assessment and plan=1-cervical radiculopathy 2-cervical spondylosis with cervical facet arthropathy. 3- cervical spinal stenosis. 4-myofascial pain syndrome cervical area and right shoulder blade area. she could benefit from cervical epidural steroid injection at C6 7 right paramedian approach, at the same time we can do Trigger point injection right side cervical paraspinal muscles and right shoulder blade area Time with Patient: Greater than 30 PQRS Measure Charge Sheet Measure #130: Documentation of Current Meds in Medical Chart: Patient's medications documented in chart Measure #226: Tobacco Use: Screen & Cessation Intervention: Pt not a tobacco user Measure #111: Pneumonia Vaccination: Pneumococcal vaccine administered or previously received Measure #47: Advance Care Plan: Advance care planning discussed & documented, pt chose/unable to give Measure #412: Opioid Treatment Agreement: No documentation of signed opioid treatment agreement Measure #408: Opioid Therapy Follow-up Evaluation: Patient had NO f/u eval minimum every 3 months during opioid therapy Measure #317: Preventitive Care & Scrn High Bld Press & F/U: Normal blood pressure, f/u not required Measure #128: Body Mass Index (BMI) Screening & Follow-up: BMI documented within normal parameters Measure #131: Pain Assessment & Follow-up: Pain positive & plan documented, Follow-up scheduled Measure #431: Unhealthy Alcohol Use Preventative Care & Scrn: Patient not identified as an unhealthy alcohol user PQRS Narrative: Smoking Status Never smoker Hx Alcohol Use (MH) No Home Medications: Ambulatory Orders Albuterol Nebulized [Ventolin Nebulized] 2.5 mg INHALATION Q6H PRN 12/02/14 Cetirizine HCl [Zyrtec] 10 mg PO DAILY 12/02/14 Fluticasone Propionate 2 sprays EA NOSTRIL DAILY 12/02/14 Meclizine HCl 25 mg PO QID PRN 12/02/14 Montelukast [Singulair] 10 mg PO HS 12/02/14 atenoloL [Atenolol] 25 mg PO QAM 12/02/14 Atorvastatin [Lipitor] 10 mg PO DAILY 09/23/16 Jimmy/D3/Mag11/Zinc/Chemistry Quality Control Analyst/Delon/Bor [Caltrate 600+D Plus Tablet] 1 each PO BID 02/02/17 Levothyroxine Sodium 100 mcg PO SUMOTUWETHFR 02/02/17 Omeprazole [PriLOSEC] 20 mg PO QAM 02/02/17 Albuterol Sulfate [Proventil Hfa] 1 - 2 puff INHALATION Q6HR PRN 12/15/17 Cetirizine HCl [Zyrtec] 5 mg PO DAILY 12/17/20 Fluticasone/Salmeterol [Advair Hfa 115-21 Mcg Inhaler] 2 puff INHALATION BID 12/17/20 Losartan Potassium [Cozaar] 50 mg PO HS 12/17/20
== END ==
LOC: PNWHC3 11:04
PROVIDERS: ATTEND Specialist
DX: M47.22 Other spondylosis with radiculopathy, cervical region (principal); M48.02 Spinal stenosis, cervical region; M79.18 Myalgia, other site; J45.909 Unspecified asthma, uncomplicated; E78.5 Hyperlipidemia, unspecified; I10 Essential (primary) hypertension; M19.90 Unspecified osteoarthritis, unspecified site; K21.9 Gastro-esophageal reflux disease without esophagitis; Z79.899 Other long term (current) drug therapy; Z88.2 Allergy status to sulfonamides
CPT/HCPCS: 99211

== ENCOUNTER 2021-01-15 10:55 | Day surgery (SDC) | payer MEDICARE, OTHER ==
[2021-01-13 15:14] VITALS: BMI 22.3
[2021-01-15 11:20] VITALS: TEMP 97.6
[2021-01-15] MEDS ORDERED: LIDOCAINE 1% (10MG/ML) FOR IV START INTRADERMA ONE (11:23)
[2021-01-15] MEDS ORDERED: IOPAMIDOL M200 10 ML VIAL ONE (11:57)
[2021-01-15] MEDS ORDERED: ROPIVACAINE 5MG/ML 20ML VIAL ONE (11:57)
[2021-01-15] MEDS ORDERED: MIDAZOLAM 2 MG/2 ML VIAL ONE (11:57)
[2021-01-15] MEDS ORDERED: DEXAMETHASONE SOD PHOSPHATE 10 MG/ML 1 ML VIAL ONE (11:57)
--- NOTE | 2021-01-15 12:09 | P.PCN ---
Date of Procedure: 01/15/21 Procedure(s) Performed: PROCEDURE 1. Cervical epidural steroid injection under fluoroscopic guidance, C6-7 2. Cervical epidurogram. 3. Trigger point injection right side cervical paraspinal muscles, right shoulder blade area (4 trigger point injected ) PREOPERATIVE DIAGNOSIS: 1- Cervical Degenerative Disc Diseases 2- Cervical radiculopathy., 3-cervical spondylosis with cervical Facet arthropathy without myelopathy 4-myofascial pain syndrome cervical area, right shoulder blade area POSTOPERATIVE DIAGNOSIS: : Same as preoperative diagnosis. ANESTHESIA: Local anesthesia with 1% lidocaine and IV sedation with Versed 1 mg EBL 0 PROCEDURE INDICATION: The patient with neck pain and radiculitis unresponsive to conservative treatment consents for procedure. PROCEDURE DESCRIPTION / TECHNIQUE: The patient was seen and identified in the preoperative area. Risks, benefits, complications, including but not limited to infections ,bleeding , allergic reactions to the medications ,and not complete pain releife, and alternatives were discussed with the patient, the patient agreed to proceed with the procedure and signed the consent. Patient was taken to the OR and time out was completed. The patient was placed in the prone position on the procedure table. A pillow was placed under the patients chest to increase the cervical interlaminar space. The cervical area was prepped and draped in the usual sterile fashion. Vital signs were closely monitored during the procedure. Conscious sedation was used during the procedure to decrease patients anxiety. Using anterior-posterior fluoroscopy, the C7-T1 interlaminar space was identified and the skin over this site was marked and then infiltrated with 1% lidocaine subcutaneously. Subsequently, a 20-gauge 3-1/2-inch Tuohy epidural needle was inserted and advanced toward the epidural space by means of the ``hanging-drop technique and guided by AP and lateral fluoroscopy. The correct needle position in the epidural space was verified with the injection of 2 mL of the water soluble contrast dye Isovue-200 and observing an excellent epidurogram with the epidural spread of the dye, after negative aspiration for blood and CSF and in the absence of paresthesias. Again after negative aspiration, mixture containing 15 mg Dexamethasone and 2 ml of preservative- free normal saline injected and a washout of epidurogram was seen. Needle was withdrawn intact. Then after that the trigger point injection done in a sterile technique using 25-gauge needle, each of the trigger point that is identified in the right side cervical paraspinal muscles and right side shoulder blade area total of 4 trigger point identified and injected each one of them injected with ropivacaine 0.5% 2 mL, 25-gauge needle injection done after negative aspiration and there was no paresthesia during the injection. Complications= none. Disposition= patient was placed in supine position and transferred to the recovery room area in stable condition and there was no evidence of upper or lower extremity motor or sensory deficit after the procedure patient was discharged from recovery room after discharge criteria met and home discharge instructions was given by the staff and patient will follow with the pain clinic in 2-4 weeks
--- NOTE | 2021-01-15 12:13 | FL ---
EXAMINATION TYPE: FL guided pain mgmt statistic DATE OF EXAM: 01/15/2021 HISTORY: Fluoroscopy time 3 seconds of fluoroscopy provided. IMPRESSION: 1. Fluoroscopy time.
[2021-01-15] MEDS ORDERED: IV FLUID CONTINUATION 1,000 ML IV ONE (12:14)
[2021-01-15 12:48] VITALS: BP 144/78; PULSE 63; RESP 20
== END 2021-01-15 12:49 | disposition home or self-care (01) ==
LOC: ORPAIN 10:55
PROVIDERS: ATTEND Specialist
DX: M47.22 Other spondylosis with radiculopathy, cervical region (principal); M79.12 Myalgia of auxiliary muscles, head and neck; M79.18 Myalgia, other site; F41.9 Anxiety disorder, unspecified
CPT/HCPCS: 20553; 62321; J2250; J1100; Q9966; J2795

== ENCOUNTER → 2021-09-28 | Outpatient (CLI) | payer MEDICARE, OTHER ==
--- NOTE | 2021-09-28 17:06 | BD ---
EXAMINATION TYPE: Axial Bone Density DATE OF EXAM: 09/28/2021 COMPARISON: 11/22/2018 CLINICAL HISTORY: 86 years year old Female. 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 Menopause before 45: PARTIAL HYST AGE 39 RISK FACTORS HISTORY OF: Active: YES Postmenopausal woman: PARTIAL HYST AGE 39 MEDICATIONS: Thyroid Medications: YES Which medication: Levothyroxine How Lon+ YEARS Osteoporosis Medications: YES Which medication: Prolia How Lon 1/2" YEARS Additional Medications: CALCIUM, VIT D, PROLIA,LEVOTHYROXINE,ATORVASTATIN, ATENOLOL, LOSARTAN POTASSI UM, SINGULAIR, MECLIZINE, FLUTICASONE, ZYRTEC, FAMOTIDINE, PROVENTIL Additional History: LUNG CANCER EXAM MEASUREMENTS: Bone mineral densitometry was performed using the NG Advantage System. Bone mineral density as measured about the Lumbar spine is: ----- L1-L4(G/cm2): 1.058 T Score Values are as follows: ----- L1: -0.3 ----- L2: -0.6 ----- L3: -1.6 ----- L4: -1.4 ----- L1-L4: -1.0 Bone mineral density has: Increased 10.0% since study of: 11/22/2018 Bone mineral density about the R hip (g/cm2): 0.638 Bone mineral density about the L hip (g/cm2): 0.660 T Score values are as follows: -----R Neck: -2.9 -----L Neck: -2.7 -----R Total: -2.8 -----L Total: -2.5 Bone mineral density has: Increased 1.7% since study of: 11/22/2018 IMPRESSION: Osteoporosis (T Score less than -2.5). There is increased fracture risk and therapy is usually indicated based on age. Re-Screen 1-2 years. NOTE: T-SCORE=SD OF THE YOUNG ADULT MEAN.
--- NOTE | 2021-09-30 08:50 | MM ---
Reason for Exam: Screening (asymptomatic). Last mammogram was performed 2 year(s) and 10 month(s) ago. Patient History: Menarche at age 14. First Full-Term at age 24. Right ovary removed at age 39. Hysterectomy at age 39. Postmenopausal. Estrogen for 2 years from age 68 until age 70. Cyst Aspiration on the Right side. Cyst Aspiration on the Right side. Cyst Aspiration on the Right side. Cyst Aspiration on the Right side. Cyst Aspiration on the Left side. Cyst Aspiration on the Left side. Cyst Aspiration on the Left side. Cyst Aspiration on the Left side. Cyst Aspiration on the Left side. Cyst Aspiration on the Left side. Cyst Aspiration on the Left side. Cyst Aspiration on the Left side. 1992, Benign Excisional Biopsy on the left side. Maternal aunt had breast cancer, age 45. Risk Values: Savana 5 year model risk: 1.4%. NCI Lifetime model risk: 1.4%. Film Views: Bilateral CC views were taken. Bilateral MLO views were taken. Prior Study Comparison: 12/02/2016 Bilateral Screening Mammogram, [facility]. 06/13/2017 Bilateral Diagnostic Mammogram, [facility]. 11/22/2018 Bilateral Screening Mammogram, [facility]. Tissue Density: There are scattered fibroglandular densities. Findings: Analyzed By CAD. There is no suspicious group of microcalcifications or new suspicious mass in either breast. Benign calcifications are present bilaterally. Chronic nodularity is present bilaterally. Benign vascular calcification is on the left. Overall Assessment: Benign, BI-RAD 2 Management: Screening Mammogram of both breasts in 1 year. A clinical breast exam by your physician is recommended on an annual basis and results should be correlated with mammographic findings. Electronically signed and approved by: Enrike Kaufman D.O. Radiologis
== END | disposition home or self-care (01) ==
LOC: RADMAMWWP 14:50
PROVIDERS: ATTEND Internal Medicine
DX: Z12.31 Encounter for screening mammogram for malignant neoplasm of breast (principal); M81.0 Age-related osteoporosis without current pathological fracture; H81.03 Meniere's disease, bilateral; Z78.0 Asymptomatic menopausal state; Z80.3 Family history of malignant neoplasm of breast; Z90.721 Acquired absence of ovaries, unilateral
CPT/HCPCS: 77063; 77067; 77080

== ENCOUNTER → 2022-10-14 | Outpatient (CLI) | payer MEDICARE, OTHER ==
--- NOTE | 2022-10-14 18:34 | XR ---
EXAMINATION TYPE: XR lumbar spine with bend/flex DATE OF EXAM: 10/14/2022 5:03 PM INDICATION: Patient age:Female; 87 years old; Reason for study: M47.816 SPONDYLOSIS W/O MYELOPATHY OR RADICULOPATH; [facility]. COMPARISON: CT 10/15/2020 TECHNIQUE: Frontal, lateral and coned in L5-S1 lateral views of the spine. Extension and flexion view s. FINDINGS: Scoliosis changes to the spine. No evidence of any acute osseous pathology. No evidence of loss of vertebral body height is seen. Scattered disc space narrowing. Multilevel marginal osteophyt e formation throughout the visualized spine. There is facet joint arthropathy throughout the spine. S cattered at least mild neural foraminal stenosis. No abnormal change in alignment on flexion or exten rosalina views. IMPRESSION: 1. No acute fracture. 2. Moderate to severe multilevel disc degeneration with associated scoliosis changes.
== END | disposition home or self-care (01) ==
LOC: RADXRMAIN 16:36
PROVIDERS: ATTEND Internal Medicine
DX: M47.816 Spondylosis without myelopathy or radiculopathy, lumbar region (principal); M41.9 Scoliosis, unspecified
CPT/HCPCS: 72114

== ENCOUNTER → 2022-11-03 | Outpatient (CLI) | payer MEDICARE, OTHER ==
--- NOTE | 2022-11-03 18:50 | MR ---
EXAMINATION TYPE: MR lumbar spine wo con DATE OF EXAM: 11/03/2022 COMPARISON: None HISTORY: Severe back pain into left side TECHNIQUE: Multiplanar, multisequence images of the lumbar spine were acquired without IV contrast. T12: There is chronic loss of height involving the T12 vertebral body with loss of height estimated a t 50%. There is no evidence for paraspinal hematoma is bony retropulsion. No underlying bony lesion i s seen. L1-L2: Severe disc desiccation posterior disc bulge. Mild effacement ventral thecal sac. No evidence for disc herniation or central stenosis. Facet joint arthropathy without significant foraminal encroa chment. L2-L3: Severe disc desiccation posterior disc bulge. Mild effacement ventral thecal sac. No evidence for disc herniation or central stenosis. Facet joint arthropathy with mild bilateral neural foraminal encroachment. L3-L4: Moderate disc desiccation with posterior disc bulge. Mild effacement ventral thecal sac. No ev idence for central stenosis. No disc herniation. Facet joint arthropathy with moderate bilateral fora jose ramon encroachment. L4-L5: Nonacute loss of height involving the L4 vertebral segment with loss of height of 40%. No bony retropulsion. Moderate disc desiccation with posterior disc bulge. Moderate bilateral neural foramin al encroachment. L5-S1: Normal disc appearance without desiccation. No herniation, protrusion or disc bulging. No ca nal stenosis is present. Foramina are patent bilaterally. Curvature seen convex to the left. No paraspinal masses are identified. Conus medullaris has a nan l appearance. IMPRESSION: 1. Nonacute compression fractures of T12 and L4. 2. Multilevel degenerative disc disease with disc bulging and foraminal encroachment as outlined tomas mota
== END | disposition home or self-care (01) ==
LOC: RADMRIMAIN 16:57
PROVIDERS: ATTEND Internal Medicine
DX: M51.36 Other intervertebral disc degeneration, lumbar region (principal); M47.816 Spondylosis without myelopathy or radiculopathy, lumbar region; S22.080A Wedge compression fracture of T11-T12 vertebra, initial encounter for closed fracture; X58.XXXA Exposure to other specified factors, initial encounter
CPT/HCPCS: 72148

== ENCOUNTER 2022-12-14 09:25 | Day surgery (SDC) | payer MEDICARE, OTHER ==
[2022-12-07 13:38] VITALS: BMI 21.7
[2022-12-14] MEDS ORDERED: LACTATED RINGERS 1,000 ML IV SCH (09:35)
[2022-12-14 09:44] VITALS: RESP 16; TEMP 50.5
[2022-12-14] MEDS ORDERED: methylPREDNISolone ACETATE 40 MG/ML 1 ML VIAL ONE (10:11)
[2022-12-14] MEDS ORDERED: IOPAMIDOL M200 10 ML VIAL ONE (10:11)
--- NOTE | 2022-12-14 10:18 | P.PCN ---
Date of Procedure: 12/14/22 Procedure(s) Performed: PREOPERATIVE DIAGNOSIS: 1- Lumbar Degenerative Disc Diseases 2-Lumbar spondylosis with Facet arthropathy without myelopathy. 3-lumbar spinal stenosis 4-compression fracture lumbar spine. POSTOPERATIVE DIAGNOSIS: 1-lumbar degenerative disc disease. 2-lumbar spondylosis with facet arthropathy without myelopathy. 3-lumbar spinal stenosis 4-compression fracture lumbar spine. PROCEDURE 1. Lumbar epidural steroid injection under fluoroscopic guidance at the L4-5 level. (Fluoroscopy imaging was available in radiology department) 2. Lumbar epidurogram. ANESTHESIA: Lidocaine 1% 3 and then only. EBL: Minimal PROCEDURE INDICATION: The patient with low back pain and radiculitis symptoms unresponsive to conservative treatment. Fluoroscopy was used to optimize visualization of the needle placement and to maximize safety. PROCEDURE DESCRIPTION / TECHNIQUE: The patient was seen and identified in the preoperative area. Risks, benefits, complications including but not limited to infections ,bleeding ,allergic reaction to the medications ,nerve damage and not complete pain releife , and alternatives were discussed with the patient. The patient agreed to proceed with the procedure and signed the consent, and vital signs were stable. Patient was taken to the OR and time out was completed. The patient was placed in the prone position on procedure table and a pillow was placed under the abdomen to reduce lumbar lordosis. The lumbosacral area was prepped and draped in the usual sterile fashion.ere closely monitored during the procedure. Vital signs was monitered during the entire procedure. Using anterior-posterior fluoroscopy, the L4-5 interlaminar space was identified and the skin over this site was marked and then infiltrated with 1% lidocaine subcutaneously. Subsequently, a 20-gauge Tuohy epidural needle was inserted and advanced toward the epidural space using the ``Loss of resistance technique and guided by AP and lateral fluoroscopy. The correct needle position in the epidural space was verified with the injection of 2 mL of the water soluble contrast dye Isovue 200 contrast and observing an excellent epidurogram with the epidural spread of the dye, after negative aspiration for blood and CSF and in the absence of paresthesias. Again after negative aspiration, a 6 ml mixture containing 40 mg of Depo-medrol ( Preservetive Free ), and 2 ml of preservative free Normal Saline, and 2 ml of preservative free lidocaine 1% solution was injected and a washout of epidurogram was seen. Needle was withdrawn intact, skin was cleansed, and bandages were applied. COMPLICATIONS: None DISPOSITION / PLANS: The patient was placed in a supine position and transferred to the recovery area in a stable condition for observation. There was no evidence of lower extremity motor or sensory deficit after the procedure. hCa alfaro was discharged from the recovery room after meeting discharge criteria. Home discharge instructions were given to the patient by the staff. The patient was reexamined prior to discharge. The patient will schedule a follow up in the clinic in 2-4 weeks.
[2022-12-14 10:35] VITALS: BP 172/84; PULSE 70
--- NOTE | 2022-12-14 10:42 | FL ---
Intraoperative/procedural fluoroscopic services were provided. Total fluoroscopy time is 1.9 seconds with a total of 1 submitted images to PACS. Please see the operative/procedural note for further deta ils. DAP: [id number] [id number]
== END 2022-12-14 10:38 | disposition home or self-care (01) ==
LOC: ORPAIN 09:25
PROVIDERS: ATTEND Specialist
DX: M51.16 Intervertebral disc disorders with radiculopathy, lumbar region (principal); M47.26 Other spondylosis with radiculopathy, lumbar region; M48.061 Spinal stenosis, lumbar region without neurogenic claudication; M48.56XA Collapsed vertebra, not elsewhere classified, lumbar region, initial encounter for fracture; Z88.2 Allergy status to sulfonamides
CPT/HCPCS: 62323; J1030; Q9966

== ENCOUNTER → 2022-12-23 | Outpatient (CLI) | payer MEDICARE, OTHER ==
[~2022-12-23] MED LIST changes: +KETOROLAC 15 MG/ML 1 ML VIAL IM ONE; -LACTATED RINGERS 1,000 ML IV SCH
[2022-12-23 09:58] VITALS: BP 165/90; PULSE 70; RESP 16; TEMP 98.1
== END ==
LOC: PROCWHC3 09:31
PROVIDERS: ATTEND Physician Assistant Medical
DX: M54.16 Radiculopathy, lumbar region (principal)
CPT/HCPCS: 96372; J1885

== ENCOUNTER → 2022-12-23 | Outpatient (CLI) | payer MEDICARE, OTHER ==
[2022-12-23 09:38] VITALS: BP 165/87; PULSE 68; RESP 15; TEMP 98.3
--- NOTE | 2022-12-23 12:24 | P.PAINPG ---
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 Pt experienced no pain relief s/p procedure. She in fact feels heightened pain when standing from a sitting position. Pain level is provoked at 6 /10 in intensity, constant, localized in the lumbar spine, sharp in character w shooting towards the LLE and up the spine. Pain is provoked by standing/ walking for periods of 5 min or more. Pain is alleviated with a wheelchair for ambulatory assistance, medications, heat, ice, repositioning and rest. Pt follows a physician guided home stretching regimen every other day since 2019. Oswestry axial pain score at 32. Interventional pain procedures completed include MARELY C7-T1 x2, C6-C7 x1, L4-L5 x1 Patient is currently on Baclofen, Mobic, [place] Patient denies any side effects of the medication(s), denies excessive drowsiness or sleepiness, denies suicidal ideation and reports that the current pain medication is helping to control the pain and improve activities of daily living. Patient denies any motor or sensory deficits. Patient denies any fever or night sweats, denies any change in the bowel movements or urination. Physical Examination: -Constitutional: Cooperative. Not in acute distress . - Neurologic: Cranial nerve II to XII intact. No focal neurological deficits. - Psychatric: Alert & oriented x 3. Matching mood & appropriate affect. Judgment and insight intact. - Musculoskeletal: Cervical spine: Muscle bulk/ tone/ strength in the bilateral upper extremities normal Vertebral body tenderness to palpation over Spurling test positive Distraction test positive Facet loading test positive TTP Thoracic spine Muscle bulk / tone/ strength in the bilateral paraspinal muscles normal Vertebral body tender to palpation over Facet loading test positive TTP Lumbar spine: Motor bulk/ tone/ strength lower extremities , thigh and legs : 5/5 Deep tendon reflexes : Normal Knee Jerk. Normal Ankle Jerk . Vertebral body tenderness to palpation over L4 Turner Test positive Lumbar Facet Loading Test positive Straight Leg Raise: positive at 30 degrees right side/ left side Gaenslen's Test positive Sacral spine : Severe tenderness over the Sacroiliac joint: right side / left side Range of motion: Flexion of the lumbar spine <60 degrees Range of motion: Extension of the lumbar spine <20 degrees Gaenslen's Test positive right side / left side Clifford test: positive right side / left side Thigh Thrust Test positive right side / left side Sacral Thrust Test positive right side / left side Imaging: MRI non contrast of the lumbar spine from 11/03/22 reviewed Assessment and plan: Chronic LBP secondary to lumbar DDD, spondylosis with facet arthropathy without myelopathy Recommendation of PT x 6 wks re G89.4 to focus on pain management modalities. Toradol 60mg/2mL x 1 now. 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 All questions answered. I have spent less than 30 minutes on patient care today. Dr Hancock was available by phone for the evaluation of this patient. The time was used to review the medical records including relevant urine studies and Prescription history (MAPs), review of the available imaging, evaluation and examination of the patient, coordination of care with the medical staff and if applicable referring physicians, as well as creation of the medical record PQRS Narrative: Smoking Status Never smoker Hx Alcohol Use (MH) No Home Medications: Ambulatory Orders Montelukast [Singulair] 10 mg PO HS 12/02/14 atenoloL 25 mg PO QAM 12/02/14 Atorvastatin [Lipitor] 10 mg PO DAILY 09/23/16 Omeprazole [PriLOSEC] 40 mg PO QAM 02/02/17 Albuterol Sulfate [Proventil Hfa] 1 - 2 puff INHALATION Q6HR PRN 12/15/17 Fluticasone Propion/Salmeterol [Advair Hfa 115-21 Mcg Inhaler] 2 puff INHALATION BID 12/17/20 Losartan Potassium [Cozaar] 50 mg PO HS 12/17/20 Levothyroxine Sodium [Synthroid] 88 mcg PO DAILY 01/13/21 Prolia Injection 1 applicate IJ DIRECTED 01/13/21 Hydrocodone/Acetaminophen [Hydrocodone/Acetaminophen 7.5-325] 1 tab PO Q8H PRN 12/07/22 Controlled Substance Measures - Controlled Substance Measures Is patient prescribed a controlled substance at discharge?: No
== END ==
LOC: PNWHC3 08:53
PROVIDERS: ATTEND Specialist
DX: Z09 Encounter for follow-up examination after completed treatment for conditions other than malignant neoplasm (principal); M51.36 Other intervertebral disc degeneration, lumbar region; M47.816 Spondylosis without myelopathy or radiculopathy, lumbar region; G89.29 Other chronic pain; Z88.2 Allergy status to sulfonamides
CPT/HCPCS: 99211

== ENCOUNTER 2023-03-10 11:36 | Day surgery (SDC) | payer MEDICARE, OTHER ==
[~2023-03-10 11:36] MED LIST changes: -KETOROLAC 15 MG/ML 1 ML VIAL IM ONE; +LACTATED RINGERS 1,000 ML IV SCH
[2023-03-10 12:15] VITALS: TEMP 97
[2023-03-10] MEDS ORDERED: methylPREDNISolone ACETATE 40 MG/ML 1 ML VIAL ONE (12:15)
[2023-03-10] MEDS ORDERED: ROPIVACAINE 5MG/ML 20ML VIAL ONE (12:15)
--- NOTE | 2023-03-10 12:21 | P.PCN ---
Date of Procedure: 03/10/23 Procedure(s) Performed: Procedure= trigger point injections thoracic and lumbar paraspinal muscles bilaterally , 3 on the right side from T6 to L4 , and 4 on the left side from T6 to L4 Preoperative diagnosis= 1-myofascial pain syndrome thoracic and lumbar paraspinal muscles 2-lumbar degenerative disc disease 3-lumbar facet arthropathy Postoperative diagnosis=Same as preop Diagnosis . Complication = none Condition= stable Anesthesia= moderate sedation with Versed 2 mg. Sedation started at Indication for the procedure= patient complaining of low back pain , examination was positive for multiple trigger point in the lumbar paraspinal muscles bilaterally and patient diagnosed with myofascial pain syndrome and is here to have trigger point injections Description of the procedure= procedure risk and benefits discussed with the patient, including but not limited, risk of infection and bleeding, and ALLERGIC reaction to the medication and not complete pain relief and patient agreed with the preceding patient taken to the operating room, placed in sitting position or standard monitors applied to the patient then after induction of anesthesia back prepped with chlorhexidine 3 times , then under sterile technique each of the trigger point that was marked in the preop holding area 3 on the right side Thoracic and lumbar paraspinal muscles ( T6 to L4 ) and 4 on the left side thoracic lumbar paraspinal muscles each one of them injected with the 2 mL of the mixture of ropivacaine 0.5% 14 ML mixed with 40 mg of Depo-Medrol and 2 mL of the mixture injected at each trigger point after negative aspiration, using 25-gauge needle, injection done after negative aspiration under was no paresthesia during the injection patient tolerated the procedure well without any complications and he will follow up in the pain clinic in a few weeks note= patient was scheduled to have trigger point injection only on the left side but during the examination in the preop holding area patient reported that she had pain on both sides for this reason we did a trigger point injection bilaterally , at the levels mentioned above
[2023-03-10 12:39] VITALS: RESP 20
[2023-03-10 13:02] VITALS: BP 154/80; PULSE 68
== END 2023-03-10 12:55 | disposition home or self-care (01) ==
LOC: ORPAIN 11:36
PROVIDERS: ATTEND Specialist
DX: M62.830 Muscle spasm of back (principal); M51.36 Other intervertebral disc degeneration, lumbar region; M46.96 Unspecified inflammatory spondylopathy, lumbar region; Z88.2 Allergy status to sulfonamides
CPT/HCPCS: 20553; J1030; J2795

== ENCOUNTER → 2023-03-24 | Outpatient (CLI) | payer MEDICARE, OTHER ==
--- NOTE | 2023-03-24 11:42 | P.PAINPG ---
PQRS Measure Charge Sheet Comment: A 88 yr old female w at side with a history of severe and chronic LBP x 2-3 mo secondary to lumbar DDD and spondylosis with facet arthropathy without myelopathy presents today for evaluation s/p TPIs of L T6-L4 #1. Pt states she experienced 70% pain relief x 2 wks s/p procedure. Pain level is provoked at 7 /10 in intensity, constant, localized in the thoracolumbar spine, predominantly axial, achy in character w shooting towards the BL flanks. Pain is provoked by standing/ walking for periods of 8 min or more. Pain is alleviated with PT x 5 wks which she is currently in, medications, heat, ice, repositioning and rest. Pt follows a physician guided home stretching regimen every other day since 2019. Oswestry axial pain score at 25. Interventional pain procedures completed include MARELY C7-T1 x2, C6-C7 x1, L4-L5 x1, TPIs of L T6-L4 x1 Patient is currently on Baclofen, [place] Patient denies any side effects of the medication(s), denies excessive drowsiness or sleepiness, denies suicidal ideation and reports that the current pain medication is helping to control the pain and improve activities of daily living. Patient denies any motor or sensory deficits. Patient denies any fever or night sweats, denies any change in the bowel movements or urination. Physical Examination: -Constitutional: Cooperative. Not in acute distress . - Neurologic: Cranial nerve II to XII intact. No focal neurological deficits. - Psychatric: Alert & oriented x 3. Matching mood & appropriate affect. Judgment and insight intact. - Musculoskeletal: Cervical spine: Muscle bulk/ tone/ strength in the bilateral upper extremities normal Vertebral body tenderness to palpation over Spurling test positive Distraction test positive Facet loading test positive TTP Thoracic spine Muscle bulk / tone/ strength in the bilateral paraspinal muscles normal Vertebral body tender to palpation over Facet loading test positive TTP Taut bands w twitch response over BL T8-T12 Lumbar spine: Motor bulk/ tone/ strength lower extremities , thigh and legs : 5/5 Deep tendon reflexes : Normal Knee Jerk. Normal Ankle Jerk . Vertebral body tenderness to palpation over L4 Turner Test positive Lumbar Facet Loading Test positive Straight Leg Raise: positive at 30 degrees right side/ left side Gaenslen's Test positive Taut bands w twitch response over BL L1-S1 Sacral spine : Severe tenderness over the Sacroiliac joint: right side / left side Range of motion: Flexion of the lumbar spine <60 degrees Range of motion: Extension of the lumbar spine <20 degrees Gaenslen's Test positive right side / left side Clifford test: positive right side / left side Thigh Thrust Test positive right side / left side Sacral Thrust Test positive right side / left side Imaging: MRI non contrast of the lumbar spine from 11/03/22 reviewed Assessment and plan: Chronic LBP secondary to lumbar DDD, spondylosis with facet arthropathy without myelopathy Recommendation of TPIs of BL T8-S1 #2. May need a series of injections for optimal pain relief. Risks, benefits of procedure discussed and pt verbalized understanding. Protocol for discontinuation/ continuation of medications pipe procedure discussed. All questions answered. I have spent less than 30 minutes on patient care today. Dr Hancock was available by phone for the evaluation of this patient. The time was used to review the medical records including relevant urine studies and Prescription history (MAPs), review of the available imaging, evaluation and examination of the patient, coordination of care with the medical staff and if applicable referring physicians, as well as creation of the medical record PQRS Narrative: Smoking Status Never smoker Hx Alcohol Use (MH) No Home Medications: Ambulatory Orders Montelukast [Singulair] 10 mg PO HS 12/02/14 atenoloL 25 mg PO QAM 12/02/14 Atorvastatin [Lipitor] 10 mg PO DAILY 09/23/16 Omeprazole [PriLOSEC] 40 mg PO QAM 02/02/17 Albuterol Sulfate [Proventil Hfa] 1 - 2 puff INHALATION Q6HR PRN 12/15/17 Fluticasone Propion/Salmeterol [Advair Hfa 115-21 Mcg Inhaler] 2 puff INHALATION BID 12/17/20 Losartan Potassium [Cozaar] 50 mg PO HS 12/17/20 Levothyroxine Sodium [Synthroid] 88 mcg PO DAILY 01/13/21 Prolia Injection 1 applicate IJ DIRECTED 01/13/21 Hydrocodone/Acetaminophen [Hydrocodone/Acetaminophen 7.5-325] 1 tab PO Q8H PRN 12/07/22 Calcium Carbonate/Vitamin D3 [Calcium 600 mg-D3 10 Mcg (400 Iu)] 1 each PO BID 03/09/23 Cetirizine HCl [Zyrtec] 10 mg PO DAILY PRN 03/09/23 Fluticasone Nasal [place] [Flonase Nasal [place]] 2 spray EA NOSTRIL DAILY 03/09/23 Magnesium Oxide [Magnesium] 500 mg PO DAILY 03/09/23 guaiFENesin [Mucinex] 600 mg PO Q12H PRN 03/09/23 Controlled Substance Measures - Controlled Substance Measures Is patient prescribed a controlled substance at discharge?: No
[2023-03-24 12:39] VITALS: BP 146/113; PULSE 100; RESP 15; TEMP 98.6
== END ==
LOC: PNWHC3 11:11
PROVIDERS: ATTEND Specialist
DX: M51.37 Other intervertebral disc degeneration, lumbosacral region (principal); M47.817 Spondylosis without myelopathy or radiculopathy, lumbosacral region; G89.29 Other chronic pain; Z88.2 Allergy status to sulfonamides
CPT/HCPCS: 99211

== ENCOUNTER 2023-04-21 11:42 | Day surgery (SDC) | payer MEDICARE, OTHER ==
[2023-04-20 10:13] VITALS: BMI 19.4
[2023-04-21] MEDS ORDERED: LACTATED RINGERS 1,000 ML IV SCH (11:54)
[2023-04-21] MEDS ORDERED: methylPREDNISolone ACETATE 40 MG/ML 1 ML VIAL ONE (12:32)
[2023-04-21] MEDS ORDERED: ROPIVACAINE 5MG/ML 20ML VIAL ONE (12:32)
--- NOTE | 2023-04-21 12:38 | P.PCN ---
Date of Procedure: 04/21/23 Procedure(s) Performed: Procedure= trigger point injections thoracic and lumbar paraspinal muscles bilaterally , 3 on the right side from T8 to S1 , and 4 on the left side from T8 to S1 Preoperative diagnosis= 1-myofascial pain syndrome thoracic and lumbar paraspinal muscles 2-lumbar degenerative disc disease 3-lumbar facet arthropathy Postoperative diagnosis=Same as preop Diagnosis . Complication = none Condition= stable Anesthesia= none Indication for the procedure= patient complaining of low back pain , examination was positive for multiple trigger point in the thoracic and lumbar paraspinal muscles bilaterally and patient diagnosed with myofascial pain syndrome and is here to have trigger point injections Description of the procedure= procedure risk and benefits discussed with the patient, including but not limited, risk of infection and bleeding, and ALLERGIC reaction to the medication and not complete pain relief and patient agreed with the preceding patient taken to the operating room, placed in sitting position or standard monitors applied to the patient then after induction of anesthesia back prepped with chlorhexidine 3 times , then under sterile technique each of the trigger point that was marked in the preop holding area 3 on the right side Thoracic and lumbar paraspinal muscles ( T8-S1 ) and 4 on the left side thoracic lumbar paraspinal muscles each one of them injected with the 2 mL of the mixture of ropivacaine 0.5% 14 ML mixed with 40 mg of Depo-Medrol and 2 mL of the mixture injected at each trigger point after negative aspiration, using 25-gauge needle, injection done after negative aspiration under was no paresthesia during the injection patient tolerated the procedure well without any complications and he will follow up in the pain clinic in a few weeks
[2023-04-21 13:01] VITALS: BP 160/79; PULSE 64; RESP 18
== END 2023-04-21 12:59 | disposition home or self-care (01) ==
LOC: ORPAIN 11:42
PROVIDERS: ATTEND Anesthesiology
DX: M51.36 Other intervertebral disc degeneration, lumbar region (principal); M51.34 Other intervertebral disc degeneration, thoracic region; M79.18 Myalgia, other site; Z88.2 Allergy status to sulfonamides
CPT/HCPCS: 20553; J1030; J2795

== ENCOUNTER → 2023-05-19 | Outpatient (CLI) | payer MEDICARE, OTHER ==
[2023-05-19 11:16] VITALS: BP 137/84; PULSE 72; RESP 15; TEMP 97.3
--- NOTE | 2023-05-19 14:54 | P.PAINPG ---
PQRS Measure Charge Sheet Comment: A 88 yr old female w at side with a history of severe and chronic LBP x 2-3 mo secondary to lumbar DDD and spondylosis with facet arthropathy without myelopathy presents today for evaluation s/p TPIs of BL T8-S1 #2. Pt states she experienced 70% pain relief x 2-3 wks s/p procedure. Pain level is provoked at 6 /10 in intensity, constant, localized in the thoracolumbar spine, predominantly axial, achy in character without shooting pain. Pain is provoked by walking or lifting. Pain is alleviated with PT x 10 wks since Apr 2023, medications, heat, ice, repositioning and rest. Pt follows a physician guided home stretching regimen every other day since 2019. Oswestry axial pain score at 24. Interventional pain procedures completed include MARELY C7-T1 x2, C6-C7 x1, L4-L5 x1, TPIs of L T6-L4 x1, TPIs of BL T8-S1 #1 Patient is currently on Baclofen, [place] Patient denies any side effects of the medication(s), denies excessive drowsiness or sleepiness, denies suicidal ideation and reports that the current pain medication is helping to control the pain and improve activities of daily living. Patient denies any motor or sensory deficits. Patient denies any fever or night sweats, denies any change in the bowel movements or urination. Physical Examination: -Constitutional: Cooperative. Not in acute distress . - Neurologic: Cranial nerve II to XII intact. No focal neurological deficits. - Psychatric: Alert & oriented x 3. Matching mood & appropriate affect. Judgment and insight intact. - Musculoskeletal: Cervical spine: Muscle bulk/ tone/ strength in the bilateral upper extremities normal Vertebral body tenderness to palpation over Spurling test positive Distraction test positive Facet loading test positive TTP Thoracic spine Muscle bulk / tone/ strength in the bilateral paraspinal muscles normal Vertebral body tender to palpation over Facet loading test positive TTP Taut bands w twitch response over BL T8-T12 Lumbar spine: Motor bulk/ tone/ strength lower extremities , thigh and legs : 5/5 Deep tendon reflexes : Normal Knee Jerk. Normal Ankle Jerk . Vertebral body tenderness to palpation over L4 Turner Test positive Lumbar Facet Loading Test positive Straight Leg Raise: positive at 30 degrees right side/ left side Gaenslen's Test positive Taut bands w twitch response over BL L1-S1 Sacral spine : Severe tenderness over the Sacroiliac joint: right side / left side Range of motion: Flexion of the lumbar spine <60 degrees Range of motion: Extension of the lumbar spine <20 degrees Gaenslen's Test positive right side / left side Clifford test: positive right side / left side Thigh Thrust Test positive right side / left side Sacral Thrust Test positive right side / left side Imaging: MRI non contrast of the lumbar spine from 11/03/22 reviewed Assessment and plan: Chronic LBP secondary to lumbar DDD, spondylosis with facet arthropathy without myelopathy Will follow up w her PCP and w an orthopedic surgeon for possible SCS as she was told she is not a surgical candidate. All questions answered. I have spent less than 30 minutes on patient care today. Dr Hancock was available by phone for the evaluation of this patient. The time was used to review the medical records including relevant urine studies and Prescription history (MAPs), review of the available imaging, evaluation and examination of the patient, coordination of care with the medical staff and if applicable referring physicians, as well as creation of the medical record PQRS Narrative: Smoking Status Never smoker Hx Alcohol Use (MH) No Home Medications: Ambulatory Orders Montelukast [Singulair] 10 mg PO HS 12/02/14 atenoloL 25 mg PO QAM 12/02/14 Atorvastatin [Lipitor] 10 mg PO DAILY 09/23/16 Omeprazole [PriLOSEC] 40 mg PO QAM 02/02/17 Albuterol Sulfate [Proventil Hfa] 1 - 2 puff INHALATION Q6HR PRN 12/15/17 Fluticasone Propion/Salmeterol [Advair Hfa 115-21 Mcg Inhaler] 2 puff INHALATION BID 12/17/20 Losartan Potassium [Cozaar] 50 mg PO HS 12/17/20 Levothyroxine Sodium [Synthroid] 88 mcg PO [id number] 01/13/21 Prolia Injection 1 applicate IJ Q180D 01/13/21 Hydrocodone/Acetaminophen [Hydrocodone/Acetaminophen 7.5-325] 1 tab PO Q8H PRN 12/07/22 Calcium Carbonate/Vitamin D3 [Calcium 600 mg-D3 10 Mcg (400 Iu)] 1 each PO BID 03/09/23 Cetirizine HCl [Zyrtec] 10 mg PO DAILY PRN 03/09/23 Fluticasone Nasal [place] [Flonase Nasal [place]] 2 spray EA NOSTRIL DAILY 03/09/23 Magnesium Oxide [Magnesium] 500 mg PO DAILY 03/09/23 guaiFENesin [Mucinex] 600 mg PO Q12H PRN 03/09/23 Levothyroxine Sodium [Synthroid] 44 mcg PO HEATH 04/20/23 Controlled Substance Measures - Controlled Substance Measures Is patient prescribed a controlled substance at discharge?: No
== END ==
LOC: PNWHC3 10:28
PROVIDERS: ATTEND Specialist
DX: M51.37 Other intervertebral disc degeneration, lumbosacral region (principal); M47.817 Spondylosis without myelopathy or radiculopathy, lumbosacral region; M54.50 Low back pain, unspecified; Z88.0 Allergy status to penicillin
CPT/HCPCS: 99211

== ENCOUNTER 2024-02-03 10:14 | Emergency (ER) | payer MEDICARE, OTHER ==
[2024-02-03 10:21] VITALS: TEMP 97.7
[2024-02-03 12:20] LABS: Basophils % (A) 0 %; Eosinophils # (A) 0.3 k/uL (0-0.7); Eosinophils % (A) 3 %; HCT 42.5 % (34.0-46.0); HGB 13.9 gm/dL (11.4-16.0); Lymphocytes # (A) 1.2 k/uL (1.0-4.8); Lymphocytes % (A) 12 %; MCH 31.1 pg (25.0-35.0); MCHC 32.7 g/dL (31.0-37.0); MCV 95.2 fL (80.0-100.0); Mean Platelet Volume 7.1; Monocytes # (A) 0.7 k/uL (0-1.0); Monocytes % (A) 7 %; Neutrophils # (A) 7.5 k/uL (1.3-7.7); Neutrophils % (A) 76 %; Platelet Count 391 k/uL (150-450); RBC 4.47 m/uL (3.80-5.40); RDW 12.6 % (11.5-15.5); WBC 9.9 k/uL (3.8-10.6)
[2024-02-03 12:26] LABS: ALT 13 U/L (4-34); AST 24 U/L (14-36); African American GFR (CKD) >90 (>60 ml/min/1.73 sqM); Albumin 3.9 g/dL (3.5-5.0); Alkaline Phosphatase 55 U/L (38-126); Anion Gap 4 mmol/L; Blood Urea Nitrogen 20 mg/dL (7-17); Calcium 10.1 mg/dL (8.4-10.2); Carbon Dioxide 26 mmol/L (22-30); Chloride 102 mmol/L (98-107); Glucose 104 mg/dL (74-99); Lipase 94 U/L (23-300); Non-African American GFR(CKD) 80 (>60 ml/min/1.73 sqM); Potassium 4.7 mmol/L (3.5-5.1); Sodium 132 mmol/L (137-145); Total Bilirubin 0.5 mg/dL (0.2-1.3); Total Protein 6.1 g/dL (6.3-8.2)
[2024-02-03 12:43] LABS: Appearance,Urine Clear (Clear); Bilirubin,Urine Negative (Negative); Blood,Urine Negative (Negative); Color,Urine Colorless; Glucose,Urine (UA) Negative (Negative); Ketones,Urine Negative (Negative); Leukocyte Esterase,Urine Negative (Negative); Nitrite,Urine Negative (Negative); PH, Urine 6.5 (5.0-8.0); Protein,Urine Negative (Negative); Specific Gravity,Urine 1.008 (1.001-1.035); Urobilinogen,Urine <2.0 mg/dL (<2.0)
--- NOTE | 2024-02-03 13:44 | ED ---
Abdominal Pain HPI - General Chief Complaint: Abdominal Pain Stated Complaint: Bowel issue Time Seen by Provider: 02/03/24 10:36 Source: patient Mode of arrival: ambulatory Limitations: no limitations - History of Present Illness Initial Comments: 89-year-old female who presents emergency department reporting lower pelvic and rectal pain. States that she had 3 bowel movements today at home. This is not uncommon for the patient to go this much. She denies any diarrhea. No black or bloody stools. States that after the third bowel movement she started having intense lower abdominal pain with pain in her rectum. Patient thought that she felt a bulge in her rectum and this is what prompted her to come to the emergency department. She states that subsequently her pain had resolved. No nausea or vomiting. No fevers. She does take Benefiber daily. Patient does admit to a history of a prolapsed bladder for which she is not a surgical candid ate. Denies any urinary complaints to include dysuria, hematuria or difficulty voiding. No other alleviating, precipitating or modifying factors - Related Data Home Medications Medication Instructions Recorded Confirmed Montelukast [Singulair] 10 mg PO HS 12/02/14 04/20/23 atenoloL 25 mg PO QAM 12/02/14 04/20/23 Atorvastatin [Lipitor] 10 mg PO DAILY 09/23/16 04/20/23 Omeprazole [PriLOSEC] 40 mg PO QAM 02/02/17 04/20/23 Albuterol Sulfate [Proventil Hfa] 1 - 2 puff INHALATION Q6HR PRN 12/15/17 04/20/23 Fluticasone Propion/Salmeterol 2 puff INHALATION BID 12/17/20 04/20/23 [Advair Hfa 115-21 Mcg Inhaler] Losartan Potassium [Cozaar] 50 mg PO HS 12/17/20 04/20/23 Levothyroxine Sodium [Synthroid] 88 mcg PO [id number] 01/13/21 04/20/23 Prolia Injection 1 applicate IJ Q180D 01/13/21 04/20/23 Hydrocodone/Acetaminophen 1 tab PO Q8H PRN 12/07/22 04/20/23 [Hydrocodone/Acetaminophen 7.5-325] Calcium Carbonate/Vitamin D3 1 each PO BID 03/09/23 04/20/23 [Calcium 600 mg-D3 10 Mcg (400 Iu)] Cetirizine HCl [Zyrtec] 10 mg PO DAILY PRN 03/09/23 04/20/23 Fluticasone Nasal [place] [Flonase 2 spray EA NOSTRIL DAILY 03/09/23 04/20/23 Nasal Evans] Magnesium Oxide [Magnesium] 500 mg PO DAILY 03/09/23 04/20/23 guaiFENesin [Mucinex] 600 mg PO Q12H PRN 03/09/23 04/20/23 Levothyroxine Sodium [Synthroid] 44 mcg PO HEATH 04/20/23 04/20/23 Allergies Allergy/AdvReac Type Severity Reaction Status Date / Time Sulfa (Sulfonamide Allergy Rash/Hives Verified 02/03/24 10:21 Antibiotics) Review of Systems ROS Statement: Those systems with pertinent positive or pertinent negative responses have been documented in the HPI. ROS Other: All systems not noted in ROS Statement are negative. Past Medical History Past Medical History: Asthma, Cancer, GERD/Reflux, Hearing Disorder / Deafness, Hyperlipidemia, Hypertension, Thyroid Disorder Additional Past Medical History / Comment(s): OCC. 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 Past Anesthesia/Blood Transfusion Reactions: No Reported Reaction Additional Past Anesthesia/Blood Transfusion Reaction / Comment(s): HX VERTIGO, "problem one time with epidural"-daughter not sure what Past Psychological History: No Psychological Hx Reported Smoking Status: Never smoker Past Alcohol Use History: None Reported Past Drug Use History: None Reported - Past Family History Brother(s) Family Medical History: Cancer Father Additional Family Medical History / Comment(s): EMPHYSEMA,STOMACH ULCERS Mother Family Medical History: Pulmonary Embolus Additional Family Medical History / Comment(s): PERNICIOUS ANEMIA,INTESTINAL RUPTURE-COLOSTOMY Son(s) Family Medical History: Cancer Additional Family Medical History / Comment(s): LUNG CA- AGE 50 General Exam Limitations: no limitations General appearance: alert, in no apparent distress Head exam: Present: atraumatic, normocephalic, normal inspection Eye exam: Present: normal appearance, PERRL, EOMI. Absent: scleral icterus, conjunctival injection, periorbital swelling ENT exam: Present: normal exam, mucous membranes moist Neck exam: Present: normal inspection. Absent: tenderness, meningismus, lymphadenopathy Respiratory exam: Present: normal lung sounds bilaterally. Absent: respiratory distress, wheezes, rales, rhonchi, stridor Cardiovascular Exam: Present: regular rate, normal rhythm, normal heart sounds. Absent: systolic murmur, diastolic murmur, rubs, gallop, clicks GI/Abdominal exam: Present: soft, normal bowel sounds. Absent: distended, tenderness, guarding, rebound, rigid Rectal exam: Present: hemorrhoids. Absent: black stool, bloody stool Extremities exam: Present: normal inspection, full ROM, normal capillary refill. Absent: tenderness, pedal edema, joint swelling, calf tenderness Back exam: Present: normal inspection Neurological exam: Present: alert, oriented X3, CN II-XII intact Psychiatric exam: Present: normal affect, normal mood Skin exam: Present: warm, dry, intact, normal color. Absent: rash Course Vital Signs 02/03/24 02/03/24 10:17 14:12 Temperature 97.7 F Pulse Rate 79 78 Respiratory 18 17 Rate Blood Pressure 168/78 157/68 O2 Sat by Pulse 97 97 Oximetry Medical Decision Making - Medical Decision Making Was pt. sent in by a medical professional or institution (, PA, CHIEF DEPUTY CORONER, urgent care, hospital, or [facility]...) When possible be specific @ -No Did you speak to anyone other than the patient for history (EMS, parent, family, police, friend...)? What history was obtained from this source @ -No Did you review nursing and triage notes (agree or disagree)? Why? @ -I reviewed and agree with nursing and triage notes Were old charts reviewed (outside hosp., previous admission, EMS record, old EKG, old radiological studies, urgent care reports/EKG's, [facility] records)? Report findings @ -No old charts were reviewed Differential Diagnosis (chest pain, altered mental status, abdominal pain women, abdominal pain men, vaginal bleeding, weakness, fever, dyspnea, syncope, headache, dizziness, GI bleed, back pain, seizure, CVA, palpatations, mental health, musculoskeletal)? @ -Differential Abdominal Pain Women: Appendicitis, Cholecystitis, diverticulosis, ischemic bowel, pancreatitis, hepatitis, UTI, gastroenteritis, AAA, incarcerated hernia, bowel obstruction, constipation, inflammatory bowel, hepatitis, peptic ulcer disease, splenic infarction, perforated viscus, vulvitis, ovarian torsion, PID, kidney stone, placenta abruption, this is not meant to be an all-inclusive list EKG interpreted by me (3pts min.). @ -Not done X-rays interpreted by me (1pt min.). @ -None done CT interpreted by me (1pt min.). @ -None done U/S interpreted by me (1pt. min.). @ -None done What testing was considered but not performed or refused? (CT, X-rays, U/S, labs)? Why? @ -None What meds were considered but not given or refused? Why? @ -None Did you discuss the management of the patient with other professionals (professionals i.e. , PA, CHIEF DEPUTY CORONER, lab, RT, psych nurse, social studies teacher, skiver machine, teacher, electronic intelligence officer, case advocate)? Give summary @ -No Was smoking cessation discussed for >3mins.? @ -No Was critical care preformed (if so, how long)? @ -No Were there social determinants of health that impacted care today? How? (Homelessness, low income, unemployed, alcoholism, drug addiction, transportation, low edu. Level, literacy, decrease access to med. care, shelter, rehab)? @ -No Was there de-escalation of care discussed even if they declined (Discuss DNR or withdrawal of care, Hospice)? DNR status @ -No What co-morbidities impacted this encounter? (DM, HTN, Smoking, COPD, CAD, Cancer, CVA, ARF, Chemo, Hep., AIDS, mental health diagnosis, sleep apnea, morbid obesity)? @ -None Was patient admitted / discharged? Hospital course, mention meds given and route, prescriptions, significant lab abnormalities, going to OR and other pertinent info. @ -Upon arrival patient placed into room 22. Thorough history and physical exam was performed. Patient's pain is resolved. I did conduct laboratory studies. Rectal exam was performed. Demonstrates 2 typical hemorrhoids with 1 skin tag versus pedunculated hemorrhoid. No bleeding. No rectal prolapse appreciated at this time. No uterine or bladder prolapse. Patient feels asymptomatic at this time. I did recommend cutting down on the fiber supplementation as patient reports to 3 bowel movements per day. She will follow-up with her primary care doctor and return for any new or worsening symptoms. Patient does have an appointment with Dr. Cintron for her hemorrhoids in the next upcoming weeks. Patient discharged in stable condition Undiagnosed new problem with uncertain prognosis? @ -No Drug Therapy requiring intensive monitoring for toxicity (Heparin, Nitro, Insulin, Cardizem)? @ -No Were any procedures done? @ -No Diagnosis/symptom? @ -Acute rectal pain, external hemorrhoids, possible rectal prolapse Acute, or Chronic, or Acute on Chronic? @ -Acute Uncomplicated (without systemic symptoms) or Complicated (systemic symptoms)? @ -Complicated Side effects of treatment? @ -No Exacerbation, Progression, or Severe Exacerbation? @ -No Poses a threat to life or bodily function? How? (Chest pain, [place], [place], pneumonia, PE, COPD, DKA, ARF, appy, cholecystitis, CVA, Diverticulitis, Homicidal, Suicidal, threat to staff... and all critical care pts) @ -No - Lab Data Result diagrams: 02/03/24 11:55 02/03/24 11:55 Lab Results 02/03/24 02/03/24 02/03/24 Range/Units 11:55 11:55 12:32 WBC 9.9 (3.8-10.6) k/uL RBC 4.47 (3.80-5.40) m/uL Hgb 13.9 (11.4-16.0) gm/dL Hct 42.5 (34.0-46.0) % MCV 95.2 (80.0-100.0) fL MCH 31.1 (25.0-35.0) pg MCHC 32.7 (31.0-37.0) g/dL RDW 12.6 (11.5-15.5) % Plt Count 391 (150-450) k/uL MPV 7.1 Neutrophils % 76 % Lymphocytes % 12 % Monocytes % 7 % Eosinophils % 3 % Basophils % 0 % Neutrophils # 7.5 (1.3-7.7) k/uL Lymphocytes # 1.2 (1.0-4.8) k/uL Monocytes # 0.7 (0-1.0) k/uL Eosinophils # 0.3 (0-0.7) k/uL Basophils # 0.0 (0-0.2) k/uL Sodium 132 L (137-145) mmol/L Potassium 4.7 (3.5-5.1) mmol/L Chloride 102 (98-107) mmol/L Carbon Dioxide 26 (22-30) mmol/L Anion Gap 4 mmol/L BUN 20 H (7-17) mg/dL Creatinine 0.64 (0.52-1.04) mg/dL Est GFR (CKD-EPI)AfAm >90 (>60 ml/min/1.73 sqM) Est GFR (CKD-EPI)NonAf 80 (>60 ml/min/1.73 sqM) Glucose 104 H (74-99) mg/dL Calcium 10.1 (8.4-10.2) mg/dL Total Bilirubin 0.5 (0.2-1.3) mg/dL AST 24 (14-36) U/L ALT 13 (4-34) U/L Alkaline Phosphatase 55 (38-126) U/L Total Protein 6.1 L (6.3-8.2) g/dL Albumin 3.9 (3.5-5.0) g/dL Lipase 94 (23-300) U/L Urine Color Colorless Urine Appearance Clear (Clear) Urine pH 6.5 (5.0-8.0) Ur Specific [place] 1.008 (1.001-1.035) Urine Protein Negative (Negative) Urine Glucose (UA) Negative (Negative) Urine Ketones Negative (Negative) Urine Blood Negative (Negative) Urine Nitrite Negative (Negative) Urine Bilirubin Negative (Negative) Urine Urobilinogen <2.0 (<2.0) mg/dL Ur Leukocyte Esterase Negative (Negative) Disposition Clinical Impression: Hemorrhoid Disposition: HOME SELF-CARE Condition: Stable Instructions (If sedation given, give patient instructions): Hemorrhoids (ED) Additional Instructions: Continue using the preparation H. Follow-up with Dr. Dawkins. return for any new or worsening symptoms Is patient prescribed a controlled substance at d/c from ED?: No Referrals: Ronny Cline MD [Primary Care Provider] - 1-2 days Time of Disposition: 13:44
[2024-02-03 14:13] VITALS: BP 157/68; PULSE 78; RESP 17
== END 2024-02-03 14:13 | disposition home or self-care (01) ==
LOC: EC 10:14
DX: K58.1 Irritable bowel syndrome with constipation
CPT/HCPCS: 36415; 80053; 81003; 83690; 85025; 99284

== ENCOUNTER → 2024-07-18 | Outpatient (CLI) | payer MEDICARE, OTHER ==
--- NOTE | 2024-07-18 12:24 | BD ---
EXAMINATION TYPE: Axial Bone Density DATE OF EXAM: 07/18/2024 CLINICAL HISTORY: 89 years old Female. 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 Menopause before 45: 39 RISK FACTORS HISTORY OF: Surgery to Spine/Hip(right/left)/Wrist (right/left): no MEDICATIONS: Thyroid Medications: yes Which medication: Levothyroxine How Lon+ years Osteoporosis Medications: yes Which medication: Prolia How Lon+years EXAM MEASUREMENTS: Bone mineral densitometry was performed using the [employer] System. Bone mineral density as measured about the Lumbar spine is: ----- L1-L4(G/cm2): 1.055 T Score Values are as follows: ----- L1: -1.1 ----- L2: -1.8 ----- L3: -1.3 ----- L4: -0.4 ----- L1-L4: -1.0 Z Score Values are as follows: ----- L1: 1.5 ----- L2: 0.8 ----- L3: 1.3 ----- L4: 2.2 ----- L1-L4: 1.5 Bone mineral density has: Increased 11.6% since study of: 09/28/2021 Bone mineral density about the R hip (g/cm2): 0.572 Bone mineral density about the L hip (g/cm2): 0.606 T Score values are as follows: -----R Neck: -3.3 -----L Neck: -3.2 -----R Total: `-3.5 -----L Total: -3.2 Z Score values are as follows: -----R Neck: -0.4 -----L Neck: -0.3 -----R Total: -0.6 -----L Total: -0.3 Bone mineral density has: Decreased -12.5% since study of: 09/28/2021 FRAX%s: The graph provided illustrates a 20.9% chance for a major osteoporotic fx and a 9.0% chance f or the hips probability for fx in 10 years time. IMPRESSION: Osteoporosis (T Score less than -2.5). There is increased fracture risk and therapy is usually indicated based on age. Re-Screen 1-2 years. NOTE: T-SCORE=SD OF THE YOUNG ADULT MEAN. [facility], , 07/18/2024 12:21 PM
== END | disposition home or self-care (01) ==
LOC: RADBDWWP 11:13
PROVIDERS: ATTEND Internal Medicine
DX: M81.0 Age-related osteoporosis without current pathological fracture (principal); M85.89 Other specified disorders of bone density and structure, multiple sites
CPT/HCPCS: 77080